=== PATIENT | male | born 1955 | race African-American/Black ===

== ENCOUNTER 2016-10-23 21:05 | Inpatient (IN) | payer MEDICARE, MEDICAID ==
[~2016-10-23] VITALS: Ht 172.7 cm; Wt 65.3 kg
[~2016-10-23 21:05] MED LIST: AMLODIPINE BESY10 MG ORAL; CLOPIDOGREL75 MG ORAL; DOCUSATE SODIU100 MG ORAL; HUMALOG100 UNIT/4 SUBQ; IPRATROPIU0.2 MG/1 M HHN; METFORMIN HCL500 M1 ORAL; MILK OF MA400 MG/51 ORAL; MULTIVITAMINS1 EA13 ORAL; NORCO 5-325 TA1 EAC1 ORAL; PROTONIX40 MG ORAL; SIMVASTATIN10 MG ORAL; TYLENOL325 MG ORAL
[2016-10-23 21:38] LABS: MEAN CORPUSCULAR HEMOGLOBIN 25.9 PG (27.0-31.0); MEAN CORPUSCULAR HGB CONC 31.2 G/DL (32.0-36.0); MEAN CORPUSCULAR VOLUME 83 FL (80-99); PLATELET COUNT 339 K/UL (150-450); RED CELL DISTRIBUTION WIDTH 15.2 % (11.6-14.8)
[2016-10-23 21:47] LABS: INR 1.1 (0.9-1.1); PROTHROMBIN TIME 11.1 SEC (9.30-11.50)
[2016-10-23 21:57] LABS: ALANINE AMINOTRANSFERASE 104 U/L (3-41); ALBUMIN/GLOBULIN RATIO 0.8 (1.0-2.7); ANION GAP 25 (5-15); ASPARTATE AMINO TRANSFERASE 165 U/L (5-40); CALCIUM 9.6 mg/dL (8.6-10.2); CARBON DIOXIDE 24 mEQ/L (20-30); CHLORIDE 91 mEQ/L (98-107); GLOMERULAR FILTRATION RATE > 60 mL/min (>60); HEMOLYSIS 0; POTASSIUM 3.6 mEQ/L (3.4-4.9); SODIUM 140 mEQ/L (135-145); TOTAL PROTEIN 7.3 g/dL (6.6-8.7)
[2016-10-23 21:58] LABS: TROPONIN I < 0.30 ng/mL (<=0.30)
[2016-10-23 22:07] LABS: WHITE BLOOD COUNT 29.1 K/UL (4.8-10.8)
[2016-10-23 22:08] LABS: CKMB < 1.5 ng/mL (< 6.7)
[2016-10-23 22:13] LABS: APPEARANCE,URINE CLOUDY; KETONES,URINE NEGATIVE (NEGATIVE); LEUKOCYTE ESTERASE ,URINE 3+ (NEGATIVE); NITRITE,URINE NEGATIVE (NEGATIVE); PH,URINE 8 (4.5-8.0); PROTEIN,URINE 3+ (NEGATIVE); UROBILINOGEN,URINE NORMAL MG/DL (0.0-1.0)
[2016-10-23 22:29] LABS: RBC,URINE TNTC /HPF (0 - 0); WBC,URINE TNTC /HPF (0 - 0)
[2016-10-23 22:30] LABS: BACTERIA,URINE MANY /HPF
[2016-10-23] MEDS ORDERED: Piperacillin/Tazobactam 4.5 GM in NS 110 ML IVPB ONE (22:30)
[2016-10-23] MEDS ORDERED: Zosyn 4.5gm inj ONE (22:36)
[2016-10-23 22:38] LABS: REFLEX LACTIC ACID YES OR NO YES
[2016-10-23 22:45] LABS: BAND NEUTROPHILS % (MANUAL) 5 % (0-8); BASOPHILS % (MANUAL) 0 % (0-2); EOSINOPHILS % (MANUAL) 2 % (0-3); LYMPHOCYTES % (MANUAL) 10 % (20-45); NEUTROPHILS % (MANUAL) 82 % (45-75); PLATELET ESTIMATE ADEQUATE; TOTAL CELLS COUNTED 100
[2016-10-23 22:46] LABS: ANISOCYTOSIS 2+; POLYCHROMASIA 1+
[2016-10-23 22:47] LABS: PLATELET MORPHOLOGY NORMAL
[2016-10-23 23:15] VITALS: BP 136/69
[2016-10-24 00:10] VITALS: BP 146/77
--- NOTE | 2016-10-24 00:51 | Emergency Room Report ---
History of Present Illness General Chief Complaint: Altered Level of Consciousness Source: Medical Record, EMS Present Illness HPI This is a 61-year-old [place] male with chronic medical problem. He has a history of chronic respiratory failure and has a tracheostomy and feeding tube. He presents with chief complaint of vomiting shortness of breath. History is limited because of his condition. There is no noted fever or chills. Nursing staff was able to suction food product from his throat. Afterward he felt better. Allergies: Coded Allergies: No Known Allergies (Unverified , 02/06/16) Patient History Past Medical History: see triage record, old chart reviewed Past Surgical History: other Pertinent Family History: none Social History: Denies: smoking Immunizations: other Reviewed Nursing Documentation: PMH: Agreed, PSxH: Agreed Nursing Documentation-PMH Past Medical History: No History, Except For Hx Hypertension: Yes Hx COPD: Yes Hx Diabetes: Yes Hx Gastrointestinal Problems: Yes - non alcoholic steatohepatitis,enlarged prostate Hx Neurological Problems: Yes Hx Cerebrovascular Accident: Yes Review of Systems Eye: Denies: blurred vision, eye pain ENT: Denies: ear pain, nose congestion, throat swelling Respiratory: Reports: shortness of breath, Denies: cough Cardiovascular: Denies: chest pain, palpitations Gastrointestinal: Reports: nausea, vomiting, Denies: abdominal pain, diarrhea Musculoskeletal: Denies: back pain, joint pain Skin: Denies: rash Neurological: Denies: headache, numbness Endocrine: Denies: increased thirst, increased urine Hematologic/Lymphatic: Denies: easy bruising All Other Systems: negative except mentioned in HPI Physical Exam Vital Signs Date Time Temp Pulse Resp B/P Pulse Ox O2 Delivery O2 Flow Rate FiO2 10/23/16 20:59 130 45 122/80 100 Ambu-Bag 10/23/16 23:15 98.1 8.0 vitals with tachycardia Sp02 EP Interpretation: reviewed, normal General Appearance: alert, mild distress, Chronically Ill Head: normocephalic, atraumatic Eyes: bilateral eye EOMI, bilateral eye PERRL ENT: hearing grossly normal, normal pharynx Neck: full range of motion, supple, no meningismus Respiratory: chest non-tender, lungs clear, normal breath sounds Cardiovascular #1: regular rate, rhythm, no murmur Gastrointestinal: normal bowel sounds, non tender, no mass, no organomegaly, no bruit, non-distended Genitourinary: other - Blake with cloudy urine Musculoskeletal: back normal, other - Contracted Neurologic: alert Psychiatric: mood/affect normal Skin: warm/dry Procedures Critical Care Time Critical Care Time Critical care is mandated in this patient who presented with severe sepsis from UTI. Patient require my urgent intervention to attenuate the risks of metabolic collapse which may lead to cardiovascular collapse and . Critical care time is 35 minutes excluding any reportable procedure. Critical care time included evaluation, multiple reevaluation, looking at old charts, interpreting laboratory and diagnostic data, discussing case with patient and family and consultants, and charting. Medical Decision Making Diagnostic Impression: Primary Impression: Severe sepsis Additional Impressions: UTI (urinary tract infection) Qualified Codes: N30.00 - Acute cystitis without hematuria Anemia, chronic disease Proteinuria Chronic respiratory failure Qualified Codes: J96.10 - Chronic respiratory failure, unspecified whether with hypoxia or hypercapnia ER Course Patient presents with severe sepsis secondary to UTI. Lactic acid was high and came down with IV fluid. Blood pressures been stable. White spectrum antibiotics given. Patient will be admitted. Lab Results Impression labs with leukocytosis EKG Diagnostic Results Rate: normal Rhythm: NSR ST Segments: no acute changes Rhythm Strip Diag. Results EP Interpretation: yes Rate: 105 Rhythm: NSR, no PVC's, no ectopy Chest X-Ray Diagnostic Results EP Interpretation: Yes Findings: no consolidation, no effusion, no pneumothorax, no acute cardiopulmonary disease Number of Views: 1 Last Vital Signs Date Time Temp Pulse Resp B/P Pulse Ox O2 Delivery O2 Flow Rate FiO2 10/24/16 00:10 98.1 109 26 146/77 100 Trach Collar 8.0 Status: improved Disposition: ADMITTED INPATIENT Condition: Serious Referrals: CHALO PERRY (PCP) TO CASTELLANOS M.D. Oct 24, 2016 00:51
[2016-10-24 01:12] VITALS: BP 158/81
[2016-10-24 04:00] VITALS: BP 156/100
[2016-10-24] MEDS ORDERED: Zosyn 3.375gm inj ONE (06:04)
[2016-10-24] MEDS: Heparin 5000 units/ml inj SUBQ SCH ×3 (06:23→21:38)
[2016-10-24] MEDS: NovoLOG Insulin Flexpen SUBQ SCH ×4 (06:25→21:16)
[2016-10-24] MEDS: Piperacillin/Tazobactam 3.375 GM in D5W 110 ML IVPB SCH ×3 (06:26→21:38)
[2016-10-24] MEDS ORDERED: Insulin NPH SUBQ SCH (06:30)
[2016-10-24] MEDS ORDERED: Albuterol ud Inhalation HHN SCH (07:00)
[2016-10-24] MEDS ORDERED: LIPITOR40 MG ORAL (07:08)
[2016-10-24] MEDS ORDERED: ASPIR 8181 MG ORAL (07:08)
[2016-10-24] MEDS ORDERED: VITAMIN C500 M1 ORAL (07:08)
[2016-10-24] MEDS ORDERED: LACTULOSE20 GM/301 ORAL (07:08)
[2016-10-24] MEDS ORDERED: CRANBERRY500 M4 PO (07:08)
[2016-10-24] MEDS ORDERED: MULTIVITAMINS1 EAC8 ORAL (07:08)
[2016-10-24] MEDS ORDERED: OMEPRAZOLE20 M3 ORAL (07:08)
[2016-10-24] MEDS ORDERED: METFORMIN HCL500 M1 ORAL (07:08)
[2016-10-24] MEDS ORDERED: COZAAR50 MG ORAL (07:08)
[2016-10-24] MEDS ORDERED: MIRTAZAPINE7.5 MG ORAL (07:08)
[2016-10-24] MEDS ORDERED: ENEMA133 M1 RC (07:08)
[2016-10-24] MEDS ORDERED: Lactulose 20gm/30ml UDC ORAL SCH (07:15)
[2016-10-24] MEDS ORDERED: Fleet's Enema 133ml RECTAL SCH (07:15)
[2016-10-24] MEDS ORDERED: Fleet's Enema 133ml RECTAL PRN ×2 (07:30→09:00)
[2016-10-24] MEDS ORDERED: Lactulose 20gm/30ml UDC ORAL PRN ×2 (07:30→09:00)
--- NOTE | 2016-10-24 08:58 | Consultation ---
History of Present Illness General Date patient seen: Oct 24, 2016 Time patient seen: 08:30 Chief Complaint: Altered Level of Consciousness Referring physician: dr Wallace Reason for Consultation: chronic respiratory failure, trach status. sepsis Present Illness HPI 61-year-old Citizen Of [place] male with chronic respiratory failure, tracheostomy status 7-8- months ago due to failure to wean, DM. HTN, hx of CVA with [employer] Presents with chief complaint of vomiting, shortness of breath.. No reported fever or chills. Nursing staff was able to suction food product from his throat. Afterward he felt better. Workup in ED revealed leukocytosis, elevated lactic acid, elevated LFT UA + UTI CXR no evidence of PNA patient started on fluid resuscitation septic workup initiated started on empiric antibiotic and transfer to [facility] for further management Allergies: Coded Allergies: No Known Allergies (Unverified , 02/06/16) Medication History Scheduled Amlodipine Besylate* (Amlodipine Besylate*), 10 MG ORAL DAILY, (Reported) Ascorbic Acid* (Vitamin C*), 500 MG ORAL DAILY, (Reported) Aspirin* (Aspir 81*), 81 MG ORAL DAILY, (Reported) Atorvastatin Calcium* (Lipitor*), 40 MG ORAL BEDTIME, (Reported) Clopidogrel* (Clopidogrel*), 75 MG ORAL DAILY, (Reported) Docusate Sodium* (Docusate Sodium*), 100 MG ORAL TWICE A DAY, (Reported) Losartan Potassium* (Cozaar*), 50 MG ORAL TWICE A DAY, (Reported) Metformin Hcl* (Metformin Hcl*), 500 MG ORAL THREE TIMES A DAY, (Reported) Metformin Hcl* (Metformin Hcl*), 500 MG ORAL TWICE A DAY, (Reported) Mirtazapine* (Mirtazapine*), 7.5 MG ORAL BEDTIME, (Reported) Multivitamin With Minerals (Multivitamins With Minerals*), 1 TAB ORAL DAILY, ( Reported) Multivitamin with Minerals (Multivitamins with Minerals), 1 TAB ORAL DAILY, ( Reported) Omeprazole (Omeprazole), 20 MG ORAL DAILY, (Reported) Pantoprazole* (Protonix*), 40 MG ORAL ACBREAKFAST, (Reported) Simvastatin (Zocor), 10 MG ORAL BEDTIME, (Reported) Scheduled PRN Acetaminophen (Tylenol), 650 MG ORAL Q6H PRN for Mild Pain/Temp > 100.5, ( Reported) Hydrocodone Bit/Acetaminophen 5-325* (Damar 5-325 Tablet*), 1 TAB ORAL Q4H PRN for For Pain, (Reported) Ipratropium Alloway 0.5MG/2.5ML (Ipratropium Alloway 0.5MG/2.5ML), 0.5 MG HHN EVERY 3 HOURS PRN for Shortness of Breath, (Reported) Magnesium Hydroxide* (Milk Of Magnesia*), 30 ML ORAL EVERY 6 HOURS PRN for Constipation, (Reported) Miscellaneous Medications Cranberry Extract (Cranberry), 500 MG PO, (Reported) Insulin Lispro (Humalog), 0 SUBQ, (Reported) Lactulose (Lactulose*), 30 ML ORAL, (Reported) Na Phos,M-B/Na Phos,Di-Ba (Enema), 133 ML RC, (Reported) Patient History History Provided By: Patient, Family Member Healthcare decision maker Self Resuscitation status Full Code Advanced Directive on File Yes Past Medical/Surgical History Past Medical/Surgical History: (1) CVA, old, hemiparesis (2) Diabetes mellitus (3) Acute respiratory failure (4) Anemia (5) Chronic respiratory failure Review of Systems Constitutional: Reports: weakness Eye: Reports: no symptoms ENT: Reports: no symptoms Respiratory: Reports: see HPI Cardiovascular: Reports: no symptoms Gastrointestinal: Reports: no symptoms Genitourinary: Reports: see HPI Musculoskeletal: Reports: muscle pain, muscle stiffness Psychiatric: Reports: no symptoms Neurological: Reports: other - hx of CVA with [employer] Endocrine: Reports: other - DM Hematologic/Lymphatic: Reports: anemia Physical Exam General Appearance: no apparent distress, alert - responsive Lines, tubes and drains: peripheral, trach - Portex #6, secretions moderate, thick, yellow HEENT: normocephalic, atraumatic, anicteric Neck: normal inspection Respiratory/Chest: chest wall non-tender, no accessory muscle use, rhonchi - bilaterally - scattered Cardiovascular/Chest: normal peripheral pulses, normal rate, regular rhythm Abdomen: normal bowel sounds, non tender, soft Genitourinary/Rectal: other - Blake with cloudy urine Extremities: non-tender, normal capillary refill, no edema, other - spastic LE extremitties, [employer] Skin Exam: warm/dry Neurologic: abnormal gait, alert, responsive - with head nodding or shaking , other - Left side weakness Musculoskeletal: atrophy - BLE Last 24 Hour Vital Signs Date Time Temp Pulse Resp B/P Pulse Ox O2 Delivery O2 Flow Rate FiO2 10/24/16 08:23 T-piece 6.0 28 10/24/16 08:23 79 18 98 T-piece 28 10/24/16 08:23 98 T-piece 6.0 28 10/24/16 08:23 28 10/24/16 08:23 81 18 98 T-piece 28 10/24/16 04:00 96.1 102 18 156/100 98 T-piece 6.0 28 10/24/16 04:00 94 10/24/16 04:00 6.0 28 10/24/16 01:29 98 T-piece 6.0 10/24/16 01:29 T-piece 6.0 28 10/24/16 01:14 98.1 105 26 158/81 100 Trach Collar 8.0 10/24/16 01:12 98.1 105 26 158/81 100 Trach Collar 8.0 10/24/16 00:10 98.1 109 26 146/77 100 Trach Collar 8.0 10/23/16 23:15 98.1 114 18 136/69 100 Trach Collar 8.0 10/23/16 20:59 130 45 122/80 100 Ambu-Bag Intake and Output 10/23/16 10/24/16 19:00 07:00 Intake Total 760 ml Output Total 2600 ml Balance -1840 ml Intake Oral 0 ml IV Total 760 ml Output Urine Total 2600 ml # Bowel Movements 2 Laboratory Tests Test 10/23/16 21:10 10/23/16 21:30 10/23/16 23:01 White Blood Count 29.1 K/UL (4.8-10.8) *H Red Blood Count 3.60 M/UL (4.70-6.10) L Hemoglobin 9.3 G/DL (14.2-18.0) L Hematocrit 29.9 % (42.0-52.0) L Mean Corpuscular Volume 83 FL (80-99) Mean Corpuscular Hemoglobin 25.9 PG (27.0-31.0) L Mean Corpuscular Hemoglobin Concent 31.2 G/DL (32.0-36.0) L Red Cell Distribution Width 15.2 % (11.6-14.8) H Platelet Count 339 K/UL (150-450) Mean Platelet Volume 7.0 FL (6.5-10.1) Neutrophils (%) (Auto) % (45.0-75.0) Lymphocytes (%) (Auto) % (20.0-45.0) Monocytes (%) (Auto) % (1.0-10.0) Eosinophils (%) (Auto) % (0.0-3.0) Basophils (%) (Auto) % (0.0-2.0) Differential Total Cells Counted 100 Neutrophils % (Manual) 82 % (45-75) H Lymphocytes % (Manual) 10 % (20-45) L Monocytes % (Manual) 1 % (1-10) Eosinophils % (Manual) 2 % (0-3) Basophils % (Manual) 0 % (0-2) Band Neutrophils 5 % (0-8) Platelet Estimate Adequate Platelet Morphology Normal Polychromasia 1+ Anisocytosis 2+ Prothrombin Time 11.1 SEC (9.30-11.50) Prothromb Time International Ratio 1.1 (0.9-1.1) Activated Partial Thromboplast Time 26 SEC (23-33) Sodium Level 140 mEQ/L (135-145) Potassium Level 3.6 mEQ/L (3.4-4.9) Chloride Level 91 mEQ/L (98-107) L Carbon Dioxide Level 24 mEQ/L (20-30) Anion Gap 25 (5-15) H Blood Urea Nitrogen 23 mg/dL (7-23) Creatinine 1.0 mg/dL (0.7-1.2) Estimat Glomerular Filtration Rate > 60 mL/min (>60) Glucose Level 244 mg/dL (74-106) H Lactic Acid Level 7.30 mmol/L (0.66-2.22) H 2.50 mmol/L (0.66-2.22) H Calcium Level 9.6 mg/dL (8.6-10.2) Total Bilirubin 0.3 mg/dL (0.0-1.2) Aspartate Amino Transf (AST/SGOT) 165 U/L (5-40) H Alanine Aminotransferase (ALT/SGPT) 104 U/L (3-41) H Alkaline Phosphatase 117 U/L (40-129) Total Creatine Kinase 24 U/L (38-174) L Creatine Kinase MB < 1.5 ng/mL (< 6.7) Creatine Kinase MB Relative Index Troponin I < 0.30 ng/mL (<=0.30) Pro-B-Type Natriuretic Peptide 108 pg/mL (0-125) Total Protein 7.3 g/dL (6.6-8.7) Albumin 3.4 g/dL (3.5-5.2) L Globulin 3.9 g/dL Albumin/Globulin Ratio 0.8 (1.0-2.7) L Urine Color Yellow Urine Appearance Cloudy Urine pH 8 (4.5-8.0) Urine Specific [place] 1.010 (1.005-1.035) Urine Protein 3+ (NEGATIVE) H Urine Glucose (UA) Negative (NEGATIVE) Urine Ketones Negative (NEGATIVE) Urine Occult Blood 4+ (NEGATIVE) H Urine Nitrite Negative (NEGATIVE) Urine Bilirubin Negative (NEGATIVE) Urine Urobilinogen Normal MG/DL (0.0-1.0) Urine Leukocyte Esterase 3+ (NEGATIVE) H Urine RBC Tntc /HPF (0 - 0) H Urine WBC Tntc /HPF (0 - 0) H Urine Squamous Epithelial Cells None /LPF (NONE/OCC) Urine Bacteria Many /HPF (NONE) H Height (Feet): 5 Height (Inches): 8.00 Weight (Pounds): 144 Medications Current Medications Medications (Trade) Dose Ordered Sig/[place]usha Route PRN Reason Start Time Stop Time Status Last Admin Dose Admin Acetaminophen (Tylenol) 650 mg Q6H PRN ORAL Mild Pain/Temp > 100.5 10/24/16 05:00 11/23/16 04:59 Albuterol Sulfate (Proventil) 2.5 mg Q4HRT HHN 10/24/16 07:00 10/29/16 06:59 10/24/16 08:22 Amlodipine Besylate (Norvasc) 10 mg DAILY ORAL 10/24/16 09:00 11/23/16 08:59 Ascorbic Acid (Vitamin C) 500 mg DAILY ORAL 10/24/16 09:00 11/23/16 08:59 Aspirin (Ecotrin) 81 mg DAILY ORAL 10/24/16 09:00 11/23/16 08:59 Atorvastatin Calcium (Lipitor) 40 mg BEDTIME ORAL 10/24/16 21:00 11/23/16 20:59 Dextrose STAT PRN IV Hypoglycemia 10/24/16 04:45 11/23/16 04:44 Heparin Sodium (Porcine) (Heparin 5000 units/ml) 5,000 units EVERY 8 HOURS SUBQ 10/24/16 06:00 11/23/16 05:59 10/24/16 06:23 Insulin Aspart (NovoLOG) BEFORE MEALS AND HS SUBQ 10/24/16 06:30 11/23/16 06:29 10/24/16 06:25 Insulin Detemir (Levemir) 26 units BEDTIME SUBQ 10/24/16 21:00 11/23/16 20:59 Lactulose (Cephulac) 20 gm DAILYPRN PRN ORAL Constipation 10/24/16 09:00 11/23/16 08:59 Losartan Potassium (Cozaar) 50 mg TWICE A DAY ORAL 10/24/16 09:00 11/23/16 08:59 Metformin HCl (Glucophage) 500 mg TWICE A DAY ORAL 10/24/16 09:00 11/23/16 08:59 Mirtazapine (Remeron) 7.5 mg BEDTIME ORAL 10/24/16 21:00 11/23/16 20:59 Multivitamins Therapeutic (Therapeutic Multivitamin) 1 ea DAILY ORAL 10/24/16 09:00 11/23/16 08:59 Pantoprazole (Protonix) 40 mg DAILY IVP 10/24/16 09:00 11/23/16 08:59 Piperacillin Sod/ Tazobactam Sod/ Dextrose (Zosyn/D5W) 110 ml @ 27.5 mls/hr Q8HR IVPB 10/24/16 06:00 10/31/16 05:59 10/24/16 06:26 Sodium Chloride (Sodium Chloride 1000ml bag) 1,000 ml @ 75 mls/hr [id number] IVLG 10/24/16 05:43 11/23/16 05:42 10/24/16 06:22 Sodium Phosphate (Fleet's Sodium Phosl Enema) 133 ml DAILYPRN PRN RECTAL Constipation 10/24/16 09:00 11/23/16 08:59 Assessment/Plan Assessment/Plan ASSESSMENT sepsis UTI chronic respiratory failure, tracheostomy status acute on chronic respiratory failure aspiration/likely aspiration PNA elevated LFT HTN DM Hx of CVA with left side weakness functional quadriplegia anemia PLAN OF CARE [facility] status IVF keep NPO for now, likely aspirated empiric abx ID consult per PMD ABG trach care pulmonary toilet ATC and prn sputum cx fup with CXR in am swallow eval BP management with CCB and optimize further as needed continue ASA stop statin and trend LFT abdominal US hepatitis panel venous Duplex BS management with Levemir and SS of insulin , check HgA1c and TSH monitor HH, anemia workup if trending down ( hx of chronic anemia) Bowel regimen DVT. GI prophylaxis case discussed and evaluated by supervising physician Mauricio ([facility]),Savanah ROBLEDO Oct 24, 2016 08:58
[2016-10-24] MEDS ORDERED: DuoNeb 0.5-3(2.5)mg/3ml neb HHN PRN (09:00)
[2016-10-24] MEDS: Ascorbic Acid 500mg tab ORAL SCH (09:04)
[2016-10-24] MEDS: Multivitamin w/Minerals tab ORAL SCH (09:04)
[2016-10-24] MEDS: Pantoprazole Inj IVP SCH (09:04)
[2016-10-24] MEDS: Aspirin EC 81mg tab ORAL SCH (09:04)
[2016-10-24] MEDS: Losartan 50mg tab ORAL SCH ×2 (09:05→18:00)
[2016-10-24] MEDS: metFORMIN 500mg tab ORAL SCH ×2 (09:05→18:23)
[2016-10-24 09:35] LABS: BASOPHILS % (AUTO) 0.5 % (0.0-2.0); LYMPHOCYTES % (AUTO) 14.3 % (20.0-45.0); MEAN CORPUSCULAR HEMOGLOBIN 24.7 PG (27.0-31.0); MEAN CORPUSCULAR HGB CONC 30.3 G/DL (32.0-36.0); MEAN CORPUSCULAR VOLUME 81 FL (80-99); MEAN PLATELET VOLUME 6.6 FL (6.5-10.1); MONOCYTES % (AUTO) 3.1 % (1.0-10.0); PLATELET COUNT 327 K/UL (150-450); RED BLOOD COUNT 4.21 M/UL (4.70-6.10); RED CELL DISTRIBUTION WIDTH 15.7 % (11.6-14.8); WHITE BLOOD COUNT 17.3 K/UL (4.8-10.8)
[2016-10-24 09:52] LABS: ANION GAP 19 (5-15); CARBON DIOXIDE 29 mEQ/L (20-30); CHLORIDE 95 mEQ/L (98-107); CREATININE 0.6 mg/dL (0.7-1.2); GLOMERULAR FILTRATION RATE > 60 mL/min (>60); HEMOLYSIS 15; MAGNESIUM 1.7 mg/dL (1.7-2.5); POTASSIUM 3.9 mEQ/L (3.4-4.9); SODIUM 143 mEQ/L (135-145)
[2016-10-24 09:53] LABS: REFLEX LACTIC ACID YES OR NO YES; TROPONIN I < 0.30 ng/mL (<=0.30)
--- NOTE | 2016-10-24 14:30 | History & Physical ---
History and Physical History & Physicial Dictated for Int Med-Dr Wallace no. [id number]. BRAYAN DOTY Oct 24, 2016 14:30
[2016-10-24] MEDS: DuoNeb 0.5-3(2.5)mg/3ml neb INH SCH (14:45)
[2016-10-24 15:43] VITALS: BP 120/64
[2016-10-24] MEDS ORDERED: NS 110ml ONE (17:36)
[2016-10-24] MEDS ORDERED: NS 275ml ONE (17:36)
[2016-10-24 19:42] VITALS: BP 98/52
[2016-10-24] MEDS: Levemir Flexpen SUBQ SCH (21:15)
--- NOTE | 2016-10-24 21:28 | History and Physical Report ---
DATE OF ADMISSION: 10/23/2016 CHIEF COMPLAINT: The patient is a 61-year-old male, who presents with chief complaint of shortness of breath. HISTORY OF PRESENT ILLNESS: The patient has a history of chronic respiratory failure. The patient is vent dependent and status post tracheostomy. The patient is a resident of [facility]. According to staff at [facility], the patient began to experience nausea and vomiting on 10/23/2016. The patient began to experience shortness of breath. EMS was called. The patient was transported to [facility] emergency room. Food was suctioned from the patient's tracheostomy site. The patient was admitted for shortness of breath to rule out pneumonia. REVIEW OF SYSTEMS: Constitutional: Unable to assess secondary to the patient's mental condition. PAST MEDICAL HISTORY: Significant for, 1. History of cerebrovascular accident. 2. Hypertension. 3. Chronic obstructive pulmonary disease. 4. Diabetes. 5. Hypercholesterolemia. PAST SURGICAL HISTORY: Significant for, 1. Tracheostomy placement. 2. PEG placement. CURRENT MEDICATIONS: From [place], 1. Aspirin 81 mg one tablet p.o. daily. 2. Albuterol nebulized q.4 h. p.r.n. 3. Cozaar 50 mg one tablet p.o. twice daily. 4. Cranberry capsule 1 tablet p.o. twice daily. 5. Humalog sliding scale. 6. Hydrochlorothiazide 12.5 mg one tablet p.o. daily. 7. Lactulose 30 mL p.o. twice daily. 8. Levemir 26 units subcutaneously twice daily. 9. Lipitor 40 mg one tablet p.o. daily. 10. Metformin 500 mg one tablet p.o. twice daily. 11. Multivitamin daily. 12. Norvasc 10 mg one tablet p.o. daily. 13. Prilosec 20 mg p.o. twice daily. 14. Remeron 7.5 mg p.o. at bedtime. 15. Tylenol 650 mg p.o. q.4 h. p.r.n. ALLERGIES: No known drug allergies. SOCIAL HISTORY: The patient is . The patient denies tobacco or alcohol use. PHYSICAL EXAMINATION: VITAL SIGNS: Temperature 96.1, respirations 18, pulse 102, blood pressure 156/100, and pulse oximetry 98% on 6 liters of oxygen. GENERAL: The patient is well developed, well nourished. male, who is intubated and sedated. HEENT: Eyes, pupils are equal and responsive to light and accommodation. Extraocular movements are intact. NECK: Supple without lymphadenopathy. CHEST: Coarse breath sounds bilaterally without wheezes or rales. CARDIOVASCULAR: Regular rhythm and rate. S1 and S2 are normal without murmurs, rubs, or gallops. ABDOMEN: Soft, nontender, and nondistended. Positive bowel sounds. No evidence of hepatosplenomegaly. Currently, no guarding or guarding. EXTREMITIES: Negative for clubbing, cyanosis, or edema. RECTAL/GENITALIA: Exam was not performed. NEUROLOGIC: Weak. Cranial nerves II through XII are grossly intact without focal deficits. LABORATORY STUDIES: WBC elevated at 29.1, hemoglobin 9.3, hematocrit 29.9, and platelets 339,000. Sodium 140, potassium 3.6, chloride 91, CO2 24, BUN 23, creatinine 1.0, and glucose elevated at 244. Lactic acid elevated at 7.3. Liver function tests elevated with an AST of 155 and ALT of 104. Troponin less than 0.3. Urinalysis showed 3+ protein, 4+ occult blood with 3+ leukocyte esterase and too numerous to count RBCs and too numerous to count WBCs. ASSESSMENT: This is a 61-year-old male. 1. Respiratory failure. 2. Urinary tract infection. 3. Probable sepsis. 4. Leukocytosis. 5. Nausea with vomiting. 6. Cerebrovascular disease. 7. Hypertension. 8. Chronic obstructive pulmonary disease. 9. Diabetes. 10. Hypercholesteremia. TREATMENT: 1. Urinary tract infection/sepsis. An Infectious Disease consultation will be obtained with Dr. Telles. The patient has been placed empirically on Zosyn. We will follow recommendation of Infectious Disease. Await urine culture results. 2. Leukocytosis secondary to sepsis and urinary tract infection as above. The patient has been started empirically on Zosyn. We will follow recommendation of Infectious Disease. 3. Respiratory failure. A Pulmonary consultation will be obtained with Dr. Lebron Kendall. The patient is trach dependent. We will follow recommendation of Pulmonary. 4. Cerebrovascular disease. 5. Hypertension. Continue Norvasc and losartan as above. 6. Chronic obstructive pulmonary disease as above. A Pulmonary consultation will be obtained with Dr. Lebron Kendall. We will follow recommendations of Pulmonary. 7. Diabetes. Continue Levemir and Humalog sliding scale as above. 8. Hypercholesterolemia. Continue Lipitor as above. Alex Dunbar M.D. DR: TRICIA JOB#: [id number] CC:
[2016-10-25] VITALS: BP_SYST 106; BP_SYST 89; BP_DIAS 54; BP_DIAS 55
[2016-10-25] MEDS: DuoNeb 0.5-3(2.5)mg/3ml neb INH SCH ×4 (00:08→22:38)
[2016-10-25 04:00] VITALS: BP 119/67
[2016-10-25 05:44] LABS: BASOPHILS % (AUTO) 0.5 % (0.0-2.0); EOSINOPHILS % (AUTO) 3.2 % (0.0-3.0); LYMPHOCYTES % (AUTO) 25.2 % (20.0-45.0); MEAN CORPUSCULAR HEMOGLOBIN 25.3 PG (27.0-31.0); MEAN CORPUSCULAR HGB CONC 31.1 G/DL (32.0-36.0); MEAN CORPUSCULAR VOLUME 81 FL (80-99); MEAN PLATELET VOLUME 7.5 FL (6.5-10.1); MONOCYTES % (AUTO) 5.3 % (1.0-10.0); NEUTROPHILS % (AUTO) 65.8 % (45.0-75.0); PLATELET COUNT 351 K/UL (150-450); RED BLOOD COUNT 3.54 M/UL (4.70-6.10); RED CELL DISTRIBUTION WIDTH 15.9 % (11.6-14.8); WHITE BLOOD COUNT 12.6 K/UL (4.8-10.8)
[2016-10-25 05:59] LABS: ALANINE AMINOTRANSFERASE 54 U/L (3-41); ALBUMIN/GLOBULIN RATIO 0.9 (1.0-2.7); ANION GAP 16 (5-15); ASPARTATE AMINO TRANSFERASE 22 U/L (5-40); CALCIUM 8.7 mg/dL (8.6-10.2); CARBON DIOXIDE 29 mEQ/L (20-30); CHLORIDE 98 mEQ/L (98-107); CREATININE 0.6 mg/dL (0.7-1.2); GLOMERULAR FILTRATION RATE > 60 mL/min (>60); HEMOLYSIS 0; POTASSIUM 3.5 mEQ/L (3.4-4.9); SODIUM 143 mEQ/L (135-145); TOTAL PROTEIN 6.4 g/dL (6.6-8.7)
[2016-10-25] MEDS: Piperacillin/Tazobactam 3.375 GM in D5W 110 ML IVPB SCH ×3 (06:08→21:32)
[2016-10-25] MEDS: Heparin 5000 units/ml inj SUBQ SCH ×3 (06:09→21:33)
[2016-10-25] MEDS: NovoLOG Insulin Flexpen SUBQ SCH ×4 (06:10→20:30)
[2016-10-25 07:04] LABS: HEMOGLOBIN A1C 6.4 % (< 6.0)
[2016-10-25 08:00] VITALS: BP 136/69
[2016-10-25] MEDS: Pantoprazole Inj IVP SCH (08:24)
[2016-10-25] MEDS: Multivitamin w/Minerals tab ORAL SCH (08:25)
[2016-10-25] MEDS: Losartan 50mg tab ORAL SCH ×2 (08:25→17:00)
[2016-10-25] MEDS: Ascorbic Acid 500mg tab ORAL SCH (08:25)
[2016-10-25] MEDS: metFORMIN 500mg tab ORAL SCH ×2 (08:25→17:00)
[2016-10-25] MEDS: Aspirin EC 81mg tab ORAL SCH (08:25)
--- NOTE | 2016-10-25 09:21 | Infectious Diseases Prog Note ---
Assessment/Plan Assessment/Plan ID consult dictated # [id number] Subjective Allergies: Coded Allergies: No Known Allergies (Unverified , 02/06/16) Objective Vital Signs Last 24 Hour Vital Signs Date Time Temp Pulse Resp B/P Pulse Ox O2 Delivery O2 Flow Rate FiO2 10/25/16 08:26 91 136/69 10/25/16 08:25 136/69 10/25/16 08:00 6.0 28 10/25/16 08:00 98.0 91 20 136/69 98 Trach Collar 6.0 28 10/25/16 07:09 92 18 98 Trach Collar 5.0 28 10/25/16 06:59 89 18 98 Trach Collar 5.0 28 10/25/16 06:59 28 10/25/16 06:59 Trach Collar 5.0 28 10/25/16 06:53 96 Trach Collar 5.0 28 10/25/16 04:00 6.0 28 10/25/16 04:00 97.3 85 20 119/67 98 Trach Collar 6.0 28 10/25/16 04:00 83 10/25/16 01:15 Trach Collar 28 10/25/16 01:15 98 Trach Collar 28 10/25/16 00:09 28 10/25/16 00:08 87 16 98 Trach Collar 28 10/25/16 00:00 83 10/25/16 00:00 98.2 88 18 89/54 99 T-piece 6.0 28 10/25/16 00:00 6.0 28 10/25/16 00:00 88 16 98 Trach Collar 28 10/24/16 20:00 79 10/24/16 20:00 6.0 28 10/24/16 19:42 97.7 79 20 98/52 98 10/24/16 19:36 Trach Collar 28 10/24/16 19:36 94 Trach Collar 28 10/24/16 18:00 100/51 10/24/16 16:00 6.0 28 10/24/16 16:00 89 10/24/16 15:43 98.1 92 19 120/64 92 Bi-pap 10/24/16 14:45 28 10/24/16 14:45 82 18 98 T-piece 28 10/24/16 14:45 82 18 98 T-piece 28 10/24/16 12:45 98 T-piece 6.0 28 10/24/16 12:45 T-piece 6.0 28 10/24/16 12:00 6.0 28 10/24/16 12:00 84 Height (Feet): 5 Height (Inches): 8.00 Weight (Pounds): 144 Microbiology Date/Time Source Procedure Growth Status 10/23/16 21:10 Blood Blood Culture - Preliminary NO GROWTH AFTER 24 HOURS Resulted 10/23/16 21:05 Blood Blood Culture - Preliminary NO GROWTH AFTER 24 HOURS Resulted 10/24/16 01:30 Sacral Swab Gram Stain Pending Resulted 10/24/16 01:30 Wound Culture - Preliminary Gram Negative Vinay Resulted Laboratory Tests Test 10/24/16 12:12 10/25/16 04:50 Lactic Acid Level 1.20 mmol/L (0.66-2.22) White Blood Count 12.6 K/UL (4.8-10.8) H Red Blood Count 3.54 M/UL (4.70-6.10) L Hemoglobin 8.9 G/DL (14.2-18.0) L Hematocrit 28.7 % (42.0-52.0) L Mean Corpuscular Volume 81 FL (80-99) Mean Corpuscular Hemoglobin 25.3 PG (27.0-31.0) L Mean Corpuscular Hemoglobin Concent 31.1 G/DL (32.0-36.0) L Red Cell Distribution Width 15.9 % (11.6-14.8) H Platelet Count 351 K/UL (150-450) Mean Platelet Volume 7.5 FL (6.5-10.1) Neutrophils (%) (Auto) 65.8 % (45.0-75.0) Lymphocytes (%) (Auto) 25.2 % (20.0-45.0) Monocytes (%) (Auto) 5.3 % (1.0-10.0) Eosinophils (%) (Auto) 3.2 % (0.0-3.0) H Basophils (%) (Auto) 0.5 % (0.0-2.0) Sodium Level 143 mEQ/L (135-145) Potassium Level 3.5 mEQ/L (3.4-4.9) Chloride Level 98 mEQ/L (98-107) Carbon Dioxide Level 29 mEQ/L (20-30) Anion Gap 16 (5-15) H Blood Urea Nitrogen 18 mg/dL (7-23) Creatinine 0.6 mg/dL (0.7-1.2) L Estimat Glomerular Filtration Rate > 60 mL/min (>60) Glucose Level 92 mg/dL (74-106) Hemoglobin A1c 6.4 % (< 6.0) H Calcium Level 8.7 mg/dL (8.6-10.2) Total Bilirubin 0.2 mg/dL (0.0-1.2) Aspartate Amino Transf (AST/SGOT) 22 U/L (5-40) Alanine Aminotransferase (ALT/SGPT) 54 U/L (3-41) H Alkaline Phosphatase 92 U/L (40-129) Total Protein 6.4 g/dL (6.6-8.7) L Albumin 3.1 g/dL (3.5-5.2) L Globulin 3.3 g/dL Albumin/Globulin Ratio 0.9 (1.0-2.7) L Hepatitis A IgM Antibody Pending Hepatitis B Surface Antigen Pending Hepatitis B Core IgM Antibody Pending Hepatitis C Antibody Pending Current Medications Medications (Trade) Dose Ordered Sig/Anusha Route PRN Reason Start Time Stop Time Status Last Admin Dose Admin Acetaminophen (Tylenol) 650 mg Q6H PRN ORAL Mild Pain/Temp > 100.5 10/24/16 05:00 11/23/16 04:59 10/25/16 06:07 Albuterol/ Ipratropium (DuoNeb 0.5-3(2.5)mg/3ml) 3 ml Q4H PRN HHN sob 10/24/16 09:00 10/29/16 08:59 Albuterol/ Ipratropium (DuoNeb 0.5-3(2.5)mg/3ml) 3 ml Q8HRT INH 10/24/16 15:00 10/29/16 14:59 10/25/16 06:59 Amlodipine Besylate (Norvasc) 10 mg DAILY ORAL 10/24/16 09:00 11/23/16 08:59 10/25/16 08:26 Ascorbic Acid (Vitamin C) 500 mg DAILY ORAL 10/24/16 09:00 11/23/16 08:59 10/25/16 08:25 Aspirin (Ecotrin) 81 mg DAILY ORAL 10/24/16 09:00 11/23/16 08:59 10/25/16 08:25 Dextrose STAT PRN IV Hypoglycemia 10/24/16 04:45 11/23/16 04:44 10/25/16 06:08 Heparin Sodium (Porcine) (Heparin 5000 units/ml) 5,000 units EVERY 8 HOURS SUBQ 10/24/16 06:00 11/23/16 05:59 10/25/16 06:09 Insulin Aspart (NovoLOG) BEFORE MEALS AND HS SUBQ 10/24/16 06:30 11/23/16 06:29 10/24/16 21:16 Insulin Detemir (Levemir) 26 units BEDTIME SUBQ 10/24/16 21:00 11/23/16 20:59 10/24/16 21:15 Lactulose (Cephulac) 20 gm DAILYPRN PRN ORAL Constipation 10/24/16 09:00 11/23/16 08:59 Losartan Potassium (Cozaar) 50 mg TWICE A DAY ORAL 10/24/16 09:00 11/23/16 08:59 10/25/16 08:25 Metformin HCl (Glucophage) 500 mg TWICE A DAY ORAL 10/24/16 09:00 11/23/16 08:59 10/25/16 08:25 Mirtazapine (Remeron) 7.5 mg BEDTIME ORAL 10/24/16 21:00 11/23/16 20:59 10/24/16 21:16 Multivitamins Therapeutic (Therapeutic Multivitamin) 1 ea DAILY ORAL 10/24/16 09:00 11/23/16 08:59 10/25/16 08:25 Pantoprazole (Protonix) 40 mg DAILY IVP 10/24/16 09:00 11/23/16 08:59 10/25/16 08:24 Piperacillin Sod/ Tazobactam Sod/ Dextrose (Zosyn/D5W) 110 ml @ 27.5 mls/hr Q8HR IVPB 10/24/16 06:00 10/31/16 05:59 10/25/16 06:08 Sodium Chloride (Sodium Chloride 1000ml bag) 1,000 ml @ 75 mls/hr [id number] IVLG 10/24/16 05:43 11/23/16 05:42 10/25/16 08:24 Sodium Phosphate (Fleet's Sodium Phosl Enema) 133 ml DAILYPRN PRN RECTAL Constipation 10/24/16 09:00 11/23/16 08:59 LUIS BENNETT Oct 25, 2016 09:21
[2016-10-25 10:09] LABS: ABG BASE EXCESS 3
--- NOTE | 2016-10-25 10:28 | Diagnostic Imaging Report ---
Clinical history: Shortness of breath Technique: Portable AP chest radiograph was obtained. Comparison: 10/24/16. Findings: There is no significant interval change in the interval, allowing for differences in technique and positioning. Impression: 1. Tracheostomy tube. Low lung volumes with probable basilar atelectasis. 2. Borderline cardiomegaly with suspected mild interstitial edema and trace left pleural effusion.
[2016-10-25 12:00] VITALS: BP 124/73
--- NOTE | 2016-10-25 14:10 | Internal Med Progress Note ---
Subjective Date of Service: Oct 25, 2016 Physician Name Brayan Doty Attending Physician Todd Wallace MD Current Medications Medications (Trade) Dose Ordered Sig/Anusha Route PRN Reason Start Time Stop Time Status Last Admin Dose Admin Acetaminophen (Tylenol) 650 mg Q6H PRN ORAL Mild Pain/Temp > 100.5 10/24/16 05:00 11/23/16 04:59 10/25/16 06:07 Albuterol/ Ipratropium (DuoNeb 0.5-3(2.5)mg/3ml) 3 ml Q4H PRN HHN sob 10/24/16 09:00 10/29/16 08:59 Albuterol/ Ipratropium (DuoNeb 0.5-3(2.5)mg/3ml) 3 ml Q8HRT INH 10/24/16 15:00 10/29/16 14:59 10/25/16 06:59 Amlodipine Besylate (Norvasc) 10 mg DAILY ORAL 10/24/16 09:00 11/23/16 08:59 10/25/16 08:26 Ascorbic Acid (Vitamin C) 500 mg DAILY ORAL 10/24/16 09:00 11/23/16 08:59 10/25/16 08:25 Aspirin (Ecotrin) 81 mg DAILY ORAL 10/24/16 09:00 11/23/16 08:59 10/25/16 08:25 Dextrose STAT PRN IV Hypoglycemia 10/24/16 04:45 11/23/16 04:44 10/25/16 06:08 Heparin Sodium (Porcine) (Heparin 5000 units/ml) 5,000 units EVERY 8 HOURS SUBQ 10/24/16 06:00 11/23/16 05:59 10/25/16 13:33 Insulin Aspart (NovoLOG) BEFORE MEALS AND HS SUBQ 10/24/16 06:30 11/23/16 06:29 10/25/16 11:43 Insulin Detemir (Levemir) 26 units BEDTIME SUBQ 10/24/16 21:00 11/23/16 20:59 10/24/16 21:15 Lactulose (Cephulac) 20 gm DAILYPRN PRN ORAL Constipation 10/24/16 09:00 11/23/16 08:59 Losartan Potassium (Cozaar) 50 mg TWICE A DAY ORAL 10/24/16 09:00 11/23/16 08:59 10/25/16 08:25 Metformin HCl (Glucophage) 500 mg TWICE A DAY ORAL 10/24/16 09:00 11/23/16 08:59 10/25/16 08:25 Mirtazapine (Remeron) 7.5 mg BEDTIME ORAL 10/24/16 21:00 11/23/16 20:59 10/24/16 21:16 Multivitamins Therapeutic (Therapeutic Multivitamin) 1 ea DAILY ORAL 10/24/16 09:00 11/23/16 08:59 10/25/16 08:25 Pantoprazole (Protonix) 40 mg DAILY IVP 10/24/16 09:00 11/23/16 08:59 10/25/16 08:24 Piperacillin Sod/ Tazobactam Sod/ Dextrose (Zosyn/D5W) 110 ml @ 27.5 mls/hr Q8HR IVPB 10/24/16 06:00 10/31/16 05:59 10/25/16 13:32 Sodium Chloride (Sodium Chloride 1000ml bag) 1,000 ml @ 75 mls/hr [id number] IVLG 10/24/16 05:43 11/23/16 05:42 10/25/16 08:24 Sodium Phosphate (Fleet's Sodium Phosl Enema) 133 ml DAILYPRN PRN RECTAL Constipation 10/24/16 09:00 11/23/16 08:59 Allergies: Coded Allergies: No Known Allergies (Unverified , 02/06/16) ROS Limited/Unobtainable: Yes Subjective 61 YO M admitted with respiratory failure and urinary tract infection. ROSE. Cover for Int Med - Dr Wallace. Objective Last Vital Signs Date Time Temp Pulse Resp B/P Pulse Ox O2 Delivery O2 Flow Rate FiO2 10/25/16 13:02 Trach Collar 5.0 28 10/25/16 13:02 96 10/25/16 12:00 97.7 83 20 124/73 General Appearance: lethargic, thin EENT: normal ENT inspection Neck: non-tender, normal alignment, supple, other - Trach collar Cardiovascular: normal peripheral pulses, normal rate, regular rhythm, no gallop/murmur, no JVD Respiratory/Chest: respiratory distress, crackles/rales, rhonchi - bilaterally , expiratory wheezing Abdomen: normal bowel sounds, non tender, soft, no organomegaly, no mass Skin: normal pigmentation, warm/dry Laboratory Tests Test 10/25/16 04:50 10/25/16 08:01 White Blood Count 12.6 K/UL (4.8-10.8) H Red Blood Count 3.54 M/UL (4.70-6.10) L Hemoglobin 8.9 G/DL (14.2-18.0) L Hematocrit 28.7 % (42.0-52.0) L Mean Corpuscular Volume 81 FL (80-99) Mean Corpuscular Hemoglobin 25.3 PG (27.0-31.0) L Mean Corpuscular Hemoglobin Concent 31.1 G/DL (32.0-36.0) L Red Cell Distribution Width 15.9 % (11.6-14.8) H Platelet Count 351 K/UL (150-450) Mean Platelet Volume 7.5 FL (6.5-10.1) Neutrophils (%) (Auto) 65.8 % (45.0-75.0) Lymphocytes (%) (Auto) 25.2 % (20.0-45.0) Monocytes (%) (Auto) 5.3 % (1.0-10.0) Eosinophils (%) (Auto) 3.2 % (0.0-3.0) H Basophils (%) (Auto) 0.5 % (0.0-2.0) Sodium Level 143 mEQ/L (135-145) Potassium Level 3.5 mEQ/L (3.4-4.9) Chloride Level 98 mEQ/L (98-107) Carbon Dioxide Level 29 mEQ/L (20-30) Anion Gap 16 (5-15) H Blood Urea Nitrogen 18 mg/dL (7-23) Creatinine 0.6 mg/dL (0.7-1.2) L Estimat Glomerular Filtration Rate > 60 mL/min (>60) Glucose Level 92 mg/dL (74-106) Hemoglobin A1c 6.4 % (< 6.0) H Calcium Level 8.7 mg/dL (8.6-10.2) Total Bilirubin 0.2 mg/dL (0.0-1.2) Aspartate Amino Transf (AST/SGOT) 22 U/L (5-40) Alanine Aminotransferase (ALT/SGPT) 54 U/L (3-41) H Alkaline Phosphatase 92 U/L (40-129) Total Protein 6.4 g/dL (6.6-8.7) L Albumin 3.1 g/dL (3.5-5.2) L Globulin 3.3 g/dL Albumin/Globulin Ratio 0.9 (1.0-2.7) L Hepatitis A IgM Antibody Pending Hepatitis B Surface Antigen Pending Hepatitis B Core IgM Antibody Pending Hepatitis C Antibody Pending Arterial Blood pH 7.440 (7.350-7.450) Arterial Blood Partial Pressure CO2 40.0 mmHg (35.0-45.0) Arterial Blood Partial Pressure O2 104.0 mmHg (75.0-100.0) H Arterial Blood HCO3 27.0 mmol/L (22.0-26.0) H Arterial Blood Oxygen Saturation 97.0 % (92.0-98.0) Arterial Blood Base Excess 3 Eric Test Microbiology Date/Time Source Procedure Growth Status 10/23/16 21:10 Blood Blood Culture - Preliminary NO GROWTH AFTER 24 HOURS Resulted 10/23/16 21:05 Blood Blood Culture - Preliminary NO GROWTH AFTER 24 HOURS Resulted 10/23/16 21:30 Urine,Clean Catch Urine Culture - Preliminary Gram Negative Bacillus 1 Resulted 10/24/16 01:30 Sacral Swab Gram Stain Pending Resulted 10/24/16 01:30 Wound Culture - Preliminary Gram Negative Vinay Resulted Intake and Output 10/24/16 10/25/16 19:00 07:00 Intake Total 1497.5 ml 1052.5 ml Output Total 800 ml 1000 ml Balance 697.5 ml 52.5 ml Intake Oral 480 ml 240 ml IV Total 1017.5 ml 812.5 ml Output Urine Total 800 ml 1000 ml Assessment/Plan Problem List: (1) Lactic acid acidosis (2) Leukocytosis (3) Nausea & vomiting (4) Respiratory failure (5) SOB (shortness of breath) (6) Cerebral vascular disease (7) HTN (hypertension) Assessment & Plan: Continue norvasc and cozar. (8) COPD (chronic obstructive pulmonary disease) Assessment & Plan: See pulmonary note. Cont duoneb. (9) Diabetes mellitus type II, uncontrolled Assessment & Plan: Cont levemir, novolog sliding scale and metformin. (10) Hypercholesteremia (11) Sepsis (12) UTI (urinary tract infection) Assessment & Plan: Gram neg rods; await ID and sensitivities. See ID note- Cont zosyn. Status: not improved BRAYAN DOTY Oct 25, 2016 14:10
--- NOTE | 2016-10-25 15:31 | Wound Care Consultation ---
Wound Assessment Wound Assessment : Wound Present on Admission: Yes New Wound: No Status Change of Wound: No Wound Location Body Site Modif: mid Wound Location Body Site: other - sacrococcygeal Wound Type: pressure ulcer Nila Test: Does not Nila Pressure Ulcer Stage: III - scattered Wound Thickness: Full Thickness Wound Length: 4.0 Wound Width: 4.5 Wound Depth: 0.3 Percent of Wound Rainelle/Red: 100 Wound Drainage Description: Serosanguineous Wound Drainage Amount: Scant Wound Drainage Odor: None/Absent Tissue Surrounding Wound: Macerated Wound General Appearance: Reddened Wound Comment #1 Sacrococcygeal scattered stage III pressure ulcers Recommendation -Sacrococcygeal scattered stage III pressure ulcers Cleanse with saline pat dry apply Triad cream cover with Biatain Silicone daily and PRN soiled/dislodged -Keep clean and dry -Turn and reposition -Offload both heels -Heel protector on both heels -Low air loss overlay mattress -Optimize nutrition -Assess and f/u accordingly for any changes JACKIE NORRIS RN Oct 25, 2016 15:31
--- NOTE | 2016-10-25 15:59 | Pulmonology Progress Note ---
Assessment/Plan Assessment/Plan ASSESSMENT sepsis UTI chronic respiratory failure, tracheostomy status acute on chronic respiratory failure aspiration/likely aspiration PNA elevated LFT HTN DM Hx of CVA with left side weakness functional quadriplegia anemia sacrococcyx st 3, POA PLAN OF CARE ROSE status IVF likely aspirated empiric abx ID follows urine cx + GNB, blood cx preliminary negative, sputum cx if able ABG stable on current FiO2 trach care pulmonary toilet ATC and prn 4/2 CXR with Low lung volumes with probable basilar atelectasis. Borderline cardiomegaly with suspected mild interstitial edema and trace left pleural effusion. swallow eval in am BP management with CCB and optimize further as needed continue ASA stopped statin due to elevated LFT , trend LFT abdominal US hepatitis panel venous Duplex BS management with Levemir and SS of insulin , check HgA1c and TSH monitor HH, anemia workup if trending down ( hx of chronic anemia) Bowel regimen DVT. GI prophylaxis case discussed and evaluated by supervising physician Subjective Allergies: Coded Allergies: No Known Allergies (Unverified , 02/06/16) Subjective leukocytosis trendgin down, afebrile no signs of respiratory distress ABG stable Objective Last 24 Hour Vital Signs Date Time Temp Pulse Resp B/P Pulse Ox O2 Delivery O2 Flow Rate FiO2 10/25/16 14:54 92 18 98 Trach Collar 5.0 28 10/25/16 14:44 89 18 98 Trach Collar 5.0 28 10/25/16 14:44 28 10/25/16 13:02 Trach Collar 5.0 28 10/25/16 13:02 96 Trach Collar 5.0 28 10/25/16 12:00 97.7 83 20 124/73 99 Trach Collar 6.0 28 10/25/16 12:00 85 10/25/16 12:00 6.0 28 10/25/16 08:26 91 136/69 10/25/16 08:25 136/69 10/25/16 08:00 6.0 28 10/25/16 08:00 98.0 91 20 136/69 98 Trach Collar 6.0 28 10/25/16 08:00 87 10/25/16 07:09 92 18 98 Trach Collar 5.0 28 10/25/16 06:59 89 18 98 Trach Collar 5.0 28 10/25/16 06:59 28 10/25/16 06:59 Trach Collar 5.0 28 10/25/16 06:53 96 Trach Collar 5.0 28 10/25/16 04:00 6.0 28 10/25/16 04:00 97.3 85 20 119/67 98 Trach Collar 6.0 28 10/25/16 04:00 83 10/25/16 01:15 Trach Collar 28 10/25/16 01:15 98 Trach Collar 28 10/25/16 00:09 28 10/25/16 00:08 87 16 98 Trach Collar 28 10/25/16 00:00 83 10/25/16 00:00 98.2 88 18 89/54 99 T-piece 6.0 28 10/25/16 00:00 6.0 28 10/25/16 00:00 88 16 98 Trach Collar 28 10/24/16 20:00 79 10/24/16 20:00 6.0 28 10/24/16 19:42 97.7 79 20 98/52 98 10/24/16 19:36 Trach Collar 28 10/24/16 19:36 94 Trach Collar 28 10/24/16 18:00 100/51 10/24/16 16:00 6.0 28 10/24/16 16:00 89 Intake and Output 10/24/16 10/25/16 19:00 07:00 Intake Total 1497.5 ml 1052.5 ml Output Total 800 ml 1000 ml Balance 697.5 ml 52.5 ml Intake Oral 480 ml 240 ml IV Total 1017.5 ml 812.5 ml Output Urine Total 800 ml 1000 ml Objective General Appearance: no apparent distress, alert - responsive Lines, tubes and drains: peripheral, trach - Portex #6, secretions moderate, thick, yellow HEENT: normocephalic, atraumatic, anicteric Neck: normal inspection Respiratory/Chest: chest wall non-tender, no accessory muscle use, few scattered rhonchi Cardiovascular/Chest: normal peripheral pulses, normal rate, regular rhythm Abdomen: normal bowel sounds, non tender, soft Genitourinary/Rectal: other - Blake with cloudy urine Extremities: non-tender, normal capillary refill, no edema, other - spastic LE extremities, [employer] HEAD Skin Exam: warm/dry Neurologic: abnormal gait, alert, responsive - with head nodding or shaking , Left side weakness Musculoskeletal: atrophy - BLE Microbiology Date/Time Source Procedure Growth Status 10/23/16 21:10 Blood Blood Culture - Preliminary NO GROWTH AFTER 24 HOURS Resulted 10/23/16 21:05 Blood Blood Culture - Preliminary NO GROWTH AFTER 24 HOURS Resulted 10/23/16 21:30 Urine,Clean Catch Urine Culture - Preliminary Gram Negative Bacillus 1 Resulted 10/24/16 01:30 Sacral Swab Gram Stain Pending Resulted 10/24/16 01:30 Wound Culture - Preliminary Gram Negative Vinay Resulted Laboratory Tests 10/25/16 04:50: White Blood Count 12.6H, Red Blood Count 3.54L, Hemoglobin 8.9L, Hematocrit 28.7L, Mean Corpuscular Volume 81, Mean Corpuscular Hemoglobin 25.3L, Mean Corpuscular Hemoglobin Concent 31.1L, Red Cell Distribution Width 15.9H, Platelet Count 351, Mean Platelet Volume 7.5, Neutrophils (%) (Auto) 65.8, Lymphocytes (%) (Auto) 25.2, Monocytes (%) (Auto) 5.3, Eosinophils (%) (Auto) 3.2H, Basophils (%) (Auto) 0.5, Sodium Level 143, Potassium Level 3.5, Chloride Level 98, Carbon Dioxide Level 29, Anion Gap 16H, Blood Urea Nitrogen 18, Creatinine 0.6L, Estimat Glomerular Filtration Rate > 60, Glucose Level 92, Hemoglobin A1c 6.4H, Calcium Level 8.7, Total Bilirubin 0.2, Aspartate Amino Transf (AST/SGOT) 22, Alanine Aminotransferase (ALT/SGPT) 54H, Alkaline Phosphatase 92, Total Protein 6.4L, Albumin 3.1L, Globulin 3.3, Albumin/ Globulin Ratio 0.9L, Hepatitis A IgM Antibody [Pending], Hepatitis B Surface Antigen [Pending], Hepatitis B Core IgM Antibody [Pending], Hepatitis C Antibody [Pending] 10/25/16 08:01: Arterial Blood pH 7.440, Arterial Blood Partial Pressure CO2 40.0, Arterial Blood Partial Pressure O2 104.0H, Arterial Blood HCO3 27.0H, Arterial Blood Oxygen Saturation 97.0, Arterial Blood Base Excess 3, Eric Test Current Medications Medications (Trade) Dose Ordered Sig/Anusha Route PRN Reason Start Time Stop Time Status Last Admin Dose Admin Acetaminophen (Tylenol) 650 mg Q6H PRN ORAL Mild Pain/Temp > 100.5 10/24/16 05:00 11/23/16 04:59 10/25/16 06:07 Albuterol/ Ipratropium (DuoNeb 0.5-3(2.5)mg/3ml) 3 ml Q4H PRN HHN sob 10/24/16 09:00 10/29/16 08:59 Albuterol/ Ipratropium (DuoNeb 0.5-3(2.5)mg/3ml) 3 ml Q8HRT INH 10/24/16 15:00 10/29/16 14:59 10/25/16 14:44 Amlodipine Besylate (Norvasc) 10 mg DAILY ORAL 10/24/16 09:00 11/23/16 08:59 10/25/16 08:26 Ascorbic Acid (Vitamin C) 500 mg DAILY ORAL 10/24/16 09:00 11/23/16 08:59 10/25/16 08:25 Aspirin (Ecotrin) 81 mg DAILY ORAL 10/24/16 09:00 11/23/16 08:59 10/25/16 08:25 Dextrose STAT PRN IV Hypoglycemia 10/24/16 04:45 11/23/16 04:44 10/25/16 06:08 Heparin Sodium (Porcine) (Heparin 5000 units/ml) 5,000 units EVERY 8 HOURS SUBQ 10/24/16 06:00 11/23/16 05:59 10/25/16 13:33 Insulin Aspart (NovoLOG) BEFORE MEALS AND HS SUBQ 10/24/16 06:30 11/23/16 06:29 10/25/16 11:43 Insulin Detemir (Levemir) 26 units BEDTIME SUBQ 10/24/16 21:00 11/23/16 20:59 10/24/16 21:15 Lactulose (Cephulac) 20 gm DAILYPRN PRN ORAL Constipation 10/24/16 09:00 11/23/16 08:59 Losartan Potassium (Cozaar) 50 mg TWICE A DAY ORAL 10/24/16 09:00 11/23/16 08:59 10/25/16 08:25 Metformin HCl (Glucophage) 500 mg TWICE A DAY ORAL 10/24/16 09:00 11/23/16 08:59 10/25/16 08:25 Mirtazapine (Remeron) 7.5 mg BEDTIME ORAL 10/24/16 21:00 11/23/16 20:59 10/24/16 21:16 Multivitamins Therapeutic (Therapeutic Multivitamin) 1 ea DAILY ORAL 10/24/16 09:00 11/23/16 08:59 10/25/16 08:25 Pantoprazole (Protonix) 40 mg DAILY IVP 10/24/16 09:00 11/23/16 08:59 10/25/16 08:24 Piperacillin Sod/ Tazobactam Sod/ Dextrose (Zosyn/D5W) 110 ml @ 27.5 mls/hr Q8HR IVPB 10/24/16 06:00 10/31/16 05:59 10/25/16 13:32 Sodium Chloride (Sodium Chloride 1000ml bag) 1,000 ml @ 75 mls/hr [id number] IVLG 10/24/16 05:43 11/23/16 05:42 10/25/16 08:24 Sodium Phosphate (Fleet's Sodium Phosl Enema) 133 ml DAILYPRN PRN RECTAL Constipation 10/24/16 09:00 11/23/16 08:59 Mauricio (Nonicelso)Savanah NP Oct 25, 2016 15:59
[2016-10-25 16:00] VITALS: BP 133/73
[2016-10-25 20:00] VITALS: BP 128/70
[2016-10-25] MEDS: Levemir Flexpen SUBQ SCH (20:30)
--- NOTE | 2016-10-25 21:29 | Consultation ---
DATE OF CONSULTATION: 10/25/2016 INFECTIOUS DISEASE CONSULTATION This consult is for coverage of Dr. Telles. PRIMARY ATTENDING PHYSICIAN: Todd Wallace M.D. REASON FOR CONSULT: Sepsis and UTI. HISTORY OF PRESENT ILLNESS: The patient is a 61-year-old -[place] man who is a correction resident admitted on 10/23/2016 because of altered mental status, also had respiratory distress, has leukocytosis, but had no fever. PAST MEDICAL HISTORY: Significant for COPD, diabetes mellitus, and fatty liver. The patient is status post tracheostomy, status post G-tube placement, had CVA, and left side hemiplegia. MEDICATIONS: Levemir insulin, Remeron, DuoNeb inhaler, amlodipine, vitamin C, metformin, multivitamin, lactulose, sodium phosphate, Zosyn, sodium chloride, and Tylenol. ALLERGIES: No known drug allergy. SOCIAL HISTORY: No history of alcohol or drug abuse or smoking. Originally from [facility]. REVIEW OF SYSTEMS: Limited, but at present perhaps this patient has no complaints. PHYSICAL EXAMINATION: VITAL SIGNS: Temperature 98 degrees, pulse 91, and blood pressure 136/69. GENERAL APPEARANCE: No acute distress. HEAD AND NECK: Eros conjunctivae. Status post tracheostomy. HEART: Regular. Normal rate. LUNGS: Clear. The patient is on T bar. ABDOMEN: Soft and nontender. EXTREMITIES: He has no edema. He had contraction in the left leg. NEUROLOGIC: Awake, alert, and responsive. LABORATORY DATA: WBC today is 12.6 coming down from 29.1 at the time of admission, hemoglobin 8.9, hematocrit 28.7, and platelets 251,000. Sodium 143, potassium 3.5, chloride 98, bicarbonate 29, BUN 18, and creatinine 0.6. UA showed WBCs wvo-ecngophq-fd-count, RBC tpr-osjcsjvy-sp-count, and leukocyte esterase 3+. Blood culture x2 so far are negative. IMPRESSION: Sepsis with respiratory distress and leukocytosis likely secondary to urinary tract infection. The patient also has chronic obstructive pulmonary disease, is status post tracheostomy, has history of diabetes mellitus and fatty liver, history of CVA. RECOMMENDATIONS: We will continue with Zosyn and follow up the urine culture. At the end of my exam, I thank Dr. Wallaec for involving me in the care of this patient. Talha Clay M.D. DR: PATY JOB#: [id number] CC: [id number]
[2016-10-26] VITALS: BP 112/58
[2016-10-26 04:00] VITALS: BP 120/58
[2016-10-26 05:26] LABS: BASOPHILS % (AUTO) 0.5 % (0.0-2.0); EOSINOPHILS % (AUTO) 4.7 % (0.0-3.0); LYMPHOCYTES % (AUTO) 30.5 % (20.0-45.0); MEAN CORPUSCULAR HEMOGLOBIN 25.4 PG (27.0-31.0); MEAN CORPUSCULAR HGB CONC 31.3 G/DL (32.0-36.0); MEAN CORPUSCULAR VOLUME 81 FL (80-99); MONOCYTES % (AUTO) 5.7 % (1.0-10.0); NEUTROPHILS % (AUTO) 58.4 % (45.0-75.0); PLATELET COUNT 333 K/UL (150-450); RED BLOOD COUNT 3.44 M/UL (4.70-6.10); RED CELL DISTRIBUTION WIDTH 15.8 % (11.6-14.8); WHITE BLOOD COUNT 9.5 K/UL (4.8-10.8)
[2016-10-26 05:47] LABS: ANION GAP 15 (5-15); CALCIUM 8.9 mg/dL (8.6-10.2); CARBON DIOXIDE 27 mEQ/L (20-30); CHLORIDE 102 mEQ/L (98-107); CREATININE 0.5 mg/dL (0.7-1.2); GLOMERULAR FILTRATION RATE > 60 mL/min (>60); HEMOLYSIS 19; POTASSIUM 3.7 mEQ/L (3.4-4.9); SODIUM 144 mEQ/L (135-145)
[2016-10-26] MEDS: Heparin 5000 units/ml inj SUBQ SCH ×3 (06:26→22:08)
[2016-10-26] MEDS: Piperacillin/Tazobactam 3.375 GM in D5W 110 ML IVPB SCH ×3 (06:27→21:38)
[2016-10-26] MEDS: NovoLOG Insulin Flexpen SUBQ SCH ×4 (06:27→21:38)
[2016-10-26] MEDS: DuoNeb 0.5-3(2.5)mg/3ml neb INH SCH ×3 (07:13→22:38)
[2016-10-26 08:00] VITALS: BP 137/82
--- NOTE | 2016-10-26 08:42 | Diagnostic Imaging Report ---
Indications: Shortness of breath Technique: Portable AP chest Findings: Comparison: 03/11/16 Lung inflation has decreased. Linear densities have increased in both lung bases. Superimposed patchy consolidative opacity is suggested in the left retrocardiac region. Left costophrenic angle now indistinct; right remain sharp. Cardiac silhouette partially obscured. Pulmonary vasculature within normal limits. Tracheostomy tube remains in place. IMPRESSION: Increase in pulmonary bibasal subsegmental atelectasis. Superimposed pneumonia in left lung base not excludable. Suggestion of development of small left pleural effusion
[2016-10-26] MEDS: Aspirin EC 81mg tab ORAL SCH (09:08)
[2016-10-26] MEDS: Pantoprazole Inj IVP SCH (09:08)
[2016-10-26] MEDS: Ascorbic Acid 500mg tab ORAL SCH (09:08)
[2016-10-26] MEDS: metFORMIN 500mg tab ORAL SCH ×2 (09:08→18:03)
[2016-10-26] MEDS: Multivitamin w/Minerals tab ORAL SCH (09:08)
[2016-10-26] MEDS: Losartan 50mg tab ORAL SCH ×2 (09:10→18:03)
--- NOTE | 2016-10-26 10:41 | Pulmonology Progress Note ---
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, 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, 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 Discussed with: nurses, consultants, window caser Subjective ROS Limited/Unobtainable: No Constitutional: Reports: no symptoms HEENT: Repors: no symptoms Allergies: Coded Allergies: No Known Allergies (Unverified , 02/06/16) Objective Last 24 Hour Vital Signs Date Time Temp Pulse Resp B/P Pulse Ox O2 Delivery O2 Flow Rate FiO2 10/26/16 09:10 137/82 10/26/16 09:09 85 137/82 10/26/16 08:00 97.7 85 18 137/82 99 Trach Collar 28 10/26/16 07:13 28 10/26/16 07:13 97 Trach Collar 5.0 28 10/26/16 07:13 87 18 98 Trach Collar 5.0 10/26/16 07:13 89 18 98 Trach Collar 5.0 10/26/16 07:13 Trach Collar 5.0 28 10/26/16 04:00 97.5 80 20 120/58 98 Trach Collar 6.0 10/26/16 04:00 83 10/26/16 04:00 6.0 28 10/26/16 01:11 96 Trach Collar 5.0 28 10/26/16 01:11 Trach Collar 5.0 28 10/26/16 00:00 97.2 76 20 112/58 98 Trach Collar 6.0 10/26/16 00:00 88 10/26/16 00:00 6.0 28 10/25/16 22:41 87 18 98 Trach Collar 5.0 28 10/25/16 22:38 85 18 98 Trach Collar 5.0 28 10/25/16 22:38 28 10/25/16 20:00 6.0 28 10/25/16 20:00 83 10/25/16 20:00 97.9 82 20 128/70 95 Mechanical Ventilator 10/25/16 19:07 97 Trach Collar 5.0 28 10/25/16 19:07 Trach Collar 5.0 28 10/25/16 17:23 97.7 10/25/16 17:00 133/73 10/25/16 16:00 6.0 28 10/25/16 16:00 85 10/25/16 16:00 98.1 86 20 133/73 98 Trach Collar 6.0 28 10/25/16 14:54 92 18 98 Trach Collar 5.0 28 10/25/16 14:44 89 18 98 Trach Collar 5.0 28 10/25/16 14:44 28 10/25/16 13:02 Trach Collar 5.0 28 10/25/16 13:02 96 Trach Collar 5.0 28 10/25/16 12:00 97.7 83 20 124/73 99 Trach Collar 6.0 28 10/25/16 12:00 85 10/25/16 12:00 6.0 28 Intake and Output 10/25/16 10/26/16 19:00 07:00 Intake Total 1550.0 ml 1255.0 ml Output Total 950 ml 1450 ml Balance 600.0 ml -195.0 ml Intake Oral 540 ml 360 ml IV Total 1010.0 ml 895.0 ml Output Urine Total 950 ml 1450 ml Objective Status: awake HEENT: atraumatic, normocephalic, trach in place Lungs: rhonchi Heart: HR/BP stable Abdomen: soft, non-tender Extremities: no C/C/E, edema Microbiology Date/Time Source Procedure Growth Status 10/23/16 21:10 Blood Blood Culture - Preliminary NO GROWTH AFTER 48 HOURS Resulted 10/23/16 21:05 Blood Blood Culture - Preliminary NO GROWTH AFTER 48 HOURS Resulted 10/25/16 06:50 Sputum Induced Gram Stain - Final Resulted 10/25/16 06:50 Sputum Induced Sputum Culture Pending Resulted 10/23/16 23:55 Nasal Nares MRSA Culture - Final Staphylococcus Aureus - Mrsa Complete 10/23/16 21:30 Urine,Clean Catch Urine Culture - Preliminary Proteus Mirabilis Mixed Gram Positive Organism Resulted 10/24/16 01:30 Sacral Swab Gram Stain Pending Resulted 10/24/16 01:30 Wound Culture - Preliminary Proteus Mirabilis Gram Negative Bacillus 2 Gram Negative Bacillus 3 Staphylococcus Aureus Strep Species, Gamma-Hemolytic Resulted Laboratory Tests 10/26/16 04:35: White Blood Count 9.5, Red Blood Count 3.44L, Hemoglobin 8.7L, Hematocrit 27.9L , Mean Corpuscular Volume 81, Mean Corpuscular Hemoglobin 25.4L, Mean Corpuscular Hemoglobin Concent 31.3L, Red Cell Distribution Width 15.8H, Platelet Count 333, Mean Platelet Volume 7.0, Neutrophils (%) (Auto) 58.4, Lymphocytes (%) (Auto) 30.5, Monocytes (%) (Auto) 5.7, Eosinophils (%) (Auto) 4.7H, Basophils (%) (Auto) 0.5, Sodium Level 144, Potassium Level 3.7, Chloride Level 102, Carbon Dioxide Level 27, Anion Gap 15, Blood Urea Nitrogen 10, Creatinine 0.5L, Estimat Glomerular Filtration Rate > 60, Glucose Level 107H, Calcium Level 8.9 Current Medications Medications (Trade) Dose Ordered Sig/Anusha Route PRN Reason Start Time Stop Time Status Last Admin Dose Admin Acetaminophen (Tylenol) 650 mg Q6H PRN ORAL Mild Pain/Temp > 100.5 10/24/16 05:00 11/23/16 04:59 10/25/16 16:24 Albuterol/ Ipratropium (DuoNeb 0.5-3(2.5)mg/3ml) 3 ml Q4H PRN HHN sob 10/24/16 09:00 10/29/16 08:59 Albuterol/ Ipratropium (DuoNeb 0.5-3(2.5)mg/3ml) 3 ml Q8HRT INH 10/24/16 15:00 10/29/16 14:59 10/26/16 07:13 Amlodipine Besylate (Norvasc) 10 mg DAILY ORAL 10/24/16 09:00 11/23/16 08:59 10/26/16 09:09 Ascorbic Acid (Vitamin C) 500 mg DAILY ORAL 10/24/16 09:00 11/23/16 08:59 10/26/16 09:08 Aspirin (Ecotrin) 81 mg DAILY ORAL 10/24/16 09:00 11/23/16 08:59 10/26/16 09:08 Dextrose STAT PRN IV Hypoglycemia 10/24/16 04:45 11/23/16 04:44 10/25/16 06:08 Heparin Sodium (Porcine) (Heparin 5000 units/ml) 5,000 units EVERY 8 HOURS SUBQ 10/24/16 06:00 11/23/16 05:59 10/26/16 06:26 Insulin Aspart (NovoLOG) BEFORE MEALS AND HS SUBQ 10/24/16 06:30 11/23/16 06:29 10/25/16 20:30 Insulin Detemir (Levemir) 26 units BEDTIME SUBQ 10/24/16 21:00 11/23/16 20:59 10/25/16 20:30 Lactulose (Cephulac) 20 gm DAILYPRN PRN ORAL Constipation 10/24/16 09:00 11/23/16 08:59 Losartan Potassium (Cozaar) 50 mg TWICE A DAY ORAL 10/24/16 09:00 11/23/16 08:59 10/26/16 09:10 Metformin HCl (Glucophage) 500 mg TWICE A DAY ORAL 10/24/16 09:00 11/23/16 08:59 10/26/16 09:08 Mirtazapine (Remeron) 7.5 mg BEDTIME ORAL 10/24/16 21:00 11/23/16 20:59 10/25/16 20:31 Multivitamins Therapeutic (Therapeutic Multivitamin) 1 ea DAILY ORAL 10/24/16 09:00 11/23/16 08:59 10/26/16 09:08 Pantoprazole (Protonix) 40 mg DAILY IVP 10/24/16 09:00 11/23/16 08:59 10/26/16 09:08 Piperacillin Sod/ Tazobactam Sod/ Dextrose (Zosyn/D5W) 110 ml @ 27.5 mls/hr Q8HR IVPB 10/24/16 06:00 10/31/16 05:59 10/26/16 06:27 Sodium Chloride (Sodium Chloride 1000ml bag) 1,000 ml @ 75 mls/hr [id number] IVLG 10/24/16 05:43 11/23/16 05:42 10/25/16 20:28 Sodium Phosphate (Fleet's Sodium Phosl Enema) 133 ml DAILYPRN PRN RECTAL Constipation 10/24/16 09:00 11/23/16 08:59 NOHEMI LOREDO Oct 26, 2016 10:41
--- NOTE | 2016-10-26 11:26 | Infectious Diseases Prog Note ---
Assessment/Plan Assessment/Plan A: The patient is a 61-year-old Sepsis, SP UTI UCx : P mirabilis, Pyuria Doubt Pna : at this time C- xray : Borderline cardiomegaly with suspected mild interstitial edema and trace left pleural effusion. Respiratory distress, SP Leukocytosis improved Wnd Cx: polymicrob. growth ( Colonizer ) ALOC COPD DM Fatty liver SP tracheostomy status post G-tube placement hx of CVA and left side hemiplegia P: cont pt on Zosyn d# 2 Monitor CBC Monitor BMP Monitor LFT Monitor Cultures ( Bl,Sp ) Hep Panel Subjective Allergies: Coded Allergies: No Known Allergies (Unverified , 02/06/16) Objective Vital Signs Last 24 Hour Vital Signs Date Time Temp Pulse Resp B/P Pulse Ox O2 Delivery O2 Flow Rate FiO2 10/26/16 09:10 137/82 10/26/16 09:09 85 137/82 10/26/16 08:00 97.7 85 18 137/82 99 Trach Collar 28 10/26/16 07:13 28 10/26/16 07:13 97 Trach Collar 5.0 28 10/26/16 07:13 87 18 98 Trach Collar 5.0 28 10/26/16 07:13 89 18 98 Trach Collar 5.0 28 10/26/16 07:13 Trach Collar 5.0 28 10/26/16 04:00 97.5 80 20 120/58 98 Trach Collar 6.0 28 10/26/16 04:00 83 10/26/16 04:00 6.0 28 10/26/16 01:11 96 Trach Collar 5.0 28 10/26/16 01:11 Trach Collar 5.0 28 10/26/16 00:00 97.2 76 20 112/58 98 Trach Collar 6.0 28 10/26/16 00:00 88 10/26/16 00:00 6.0 28 10/25/16 22:41 87 18 98 Trach Collar 5.0 28 10/25/16 22:38 85 18 98 Trach Collar 5.0 28 10/25/16 22:38 28 10/25/16 20:00 6.0 28 10/25/16 20:00 83 10/25/16 20:00 97.9 82 20 128/70 95 Mechanical Ventilator 10/25/16 19:07 97 Trach Collar 5.0 28 10/25/16 19:07 Trach Collar 5.0 28 10/25/16 17:23 97.7 10/25/16 17:00 133/73 10/25/16 16:00 6.0 28 10/25/16 16:00 85 10/25/16 16:00 98.1 86 20 133/73 98 Trach Collar 6.0 28 10/25/16 14:54 92 18 98 Trach Collar 5.0 28 10/25/16 14:44 89 18 98 Trach Collar 5.0 28 10/25/16 14:44 28 10/25/16 13:02 Trach Collar 5.0 28 10/25/16 13:02 96 Trach Collar 5.0 28 10/25/16 12:00 97.7 83 20 124/73 99 Trach Collar 6.0 28 10/25/16 12:00 85 10/25/16 12:00 6.0 28 Height (Feet): 5 Height (Inches): 8.00 Weight (Pounds): 144 Microbiology Date/Time Source Procedure Growth Status 10/23/16 21:10 Blood Blood Culture - Preliminary NO GROWTH AFTER 48 HOURS Resulted 10/23/16 21:05 Blood Blood Culture - Preliminary NO GROWTH AFTER 48 HOURS Resulted 10/25/16 06:50 Sputum Induced Gram Stain - Final Resulted 10/25/16 06:50 Sputum Induced Sputum Culture Pending Resulted 10/23/16 23:55 Nasal Nares MRSA Culture - Final Staphylococcus Aureus - Mrsa Complete 10/23/16 21:30 Urine,Clean Catch Urine Culture - Preliminary Proteus Mirabilis Mixed Gram Positive Organism Resulted 10/24/16 01:30 Sacral Swab Gram Stain Pending Resulted 10/24/16 01:30 Wound Culture - Preliminary Proteus Mirabilis Gram Negative Bacillus 2 Gram Negative Bacillus 3 Staphylococcus Aureus Strep Species, Gamma-Hemolytic Resulted Laboratory Tests Test 10/26/16 04:35 White Blood Count 9.5 K/UL (4.8-10.8) Red Blood Count 3.44 M/UL (4.70-6.10) L Hemoglobin 8.7 G/DL (14.2-18.0) L Hematocrit 27.9 % (42.0-52.0) L Mean Corpuscular Volume 81 FL (80-99) Mean Corpuscular Hemoglobin 25.4 PG (27.0-31.0) L Mean Corpuscular Hemoglobin Concent 31.3 G/DL (32.0-36.0) L Red Cell Distribution Width 15.8 % (11.6-14.8) H Platelet Count 333 K/UL (150-450) Mean Platelet Volume 7.0 FL (6.5-10.1) Neutrophils (%) (Auto) 58.4 % (45.0-75.0) Lymphocytes (%) (Auto) 30.5 % (20.0-45.0) Monocytes (%) (Auto) 5.7 % (1.0-10.0) Eosinophils (%) (Auto) 4.7 % (0.0-3.0) H Basophils (%) (Auto) 0.5 % (0.0-2.0) Sodium Level 144 mEQ/L (135-145) Potassium Level 3.7 mEQ/L (3.4-4.9) Chloride Level 102 mEQ/L (98-107) Carbon Dioxide Level 27 mEQ/L (20-30) Anion Gap 15 (5-15) Blood Urea Nitrogen 10 mg/dL (7-23) Creatinine 0.5 mg/dL (0.7-1.2) L Estimat Glomerular Filtration Rate > 60 mL/min (>60) Glucose Level 107 mg/dL (74-106) H Calcium Level 8.9 mg/dL (8.6-10.2) Current Medications Medications (Trade) Dose Ordered Sig/Anusha Route PRN Reason Start Time Stop Time Status Last Admin Dose Admin Acetaminophen (Tylenol) 650 mg Q6H PRN ORAL Mild Pain/Temp > 100.5 10/24/16 05:00 11/23/16 04:59 10/25/16 16:24 Albuterol/ Ipratropium (DuoNeb 0.5-3(2.5)mg/3ml) 3 ml Q4H PRN HHN sob 10/24/16 09:00 10/29/16 08:59 Albuterol/ Ipratropium (DuoNeb 0.5-3(2.5)mg/3ml) 3 ml Q8HRT INH 10/24/16 15:00 10/29/16 14:59 10/26/16 07:13 Amlodipine Besylate (Norvasc) 10 mg DAILY ORAL 10/24/16 09:00 11/23/16 08:59 10/26/16 09:09 Ascorbic Acid (Vitamin C) 500 mg DAILY ORAL 10/24/16 09:00 11/23/16 08:59 10/26/16 09:08 Aspirin (Ecotrin) 81 mg DAILY ORAL 10/24/16 09:00 11/23/16 08:59 10/26/16 09:08 Dextrose STAT PRN IV Hypoglycemia 10/24/16 04:45 11/23/16 04:44 10/25/16 06:08 Heparin Sodium (Porcine) (Heparin 5000 units/ml) 5,000 units EVERY 8 HOURS SUBQ 10/24/16 06:00 11/23/16 05:59 10/26/16 06:26 Insulin Aspart (NovoLOG) BEFORE MEALS AND HS SUBQ 10/24/16 06:30 11/23/16 06:29 10/25/16 20:30 Insulin Detemir (Levemir) 26 units BEDTIME SUBQ 10/24/16 21:00 11/23/16 20:59 10/25/16 20:30 Lactulose (Cephulac) 20 gm DAILYPRN PRN ORAL Constipation 10/24/16 09:00 11/23/16 08:59 Losartan Potassium (Cozaar) 50 mg TWICE A DAY ORAL 10/24/16 09:00 11/23/16 08:59 10/26/16 09:10 Metformin HCl (Glucophage) 500 mg TWICE A DAY ORAL 10/24/16 09:00 11/23/16 08:59 10/26/16 09:08 Mirtazapine (Remeron) 7.5 mg BEDTIME ORAL 10/24/16 21:00 11/23/16 20:59 10/25/16 20:31 Multivitamins Therapeutic (Therapeutic Multivitamin) 1 ea DAILY ORAL 10/24/16 09:00 11/23/16 08:59 10/26/16 09:08 Pantoprazole (Protonix) 40 mg DAILY IVP 10/24/16 09:00 11/23/16 08:59 10/26/16 09:08 Piperacillin Sod/ Tazobactam Sod/ Dextrose (Zosyn/D5W) 110 ml @ 27.5 mls/hr Q8HR IVPB 10/24/16 06:00 10/31/16 05:59 10/26/16 06:27 Sodium Chloride (Sodium Chloride 1000ml bag) 1,000 ml @ 75 mls/hr [id number] IVLG 10/24/16 05:43 11/23/16 05:42 10/25/16 20:28 Sodium Phosphate (Fleet's Sodium Phosl Enema) 133 ml DAILYPRN PRN RECTAL Constipation 10/24/16 09:00 11/23/16 08:59 RASHEED HI M.D. Oct 26, 2016 11:26
--- NOTE | 2016-10-26 11:27 | Internal Med Progress Note ---
Subjective Date of Service: Oct 26, 2016 Physician Name Brayan Dunbar Attending Physician Todd Wallace MD Current Medications Medications (Trade) Dose Ordered Sig/Anusha Route PRN Reason Start Time Stop Time Status Last Admin Dose Admin Acetaminophen (Tylenol) 650 mg Q6H PRN ORAL Mild Pain/Temp > 100.5 10/24/16 05:00 11/23/16 04:59 10/25/16 16:24 Albuterol/ Ipratropium (DuoNeb 0.5-3(2.5)mg/3ml) 3 ml Q4H PRN HHN sob 10/24/16 09:00 10/29/16 08:59 Albuterol/ Ipratropium (DuoNeb 0.5-3(2.5)mg/3ml) 3 ml Q8HRT INH 10/24/16 15:00 10/29/16 14:59 10/26/16 07:13 Amlodipine Besylate (Norvasc) 10 mg DAILY ORAL 10/24/16 09:00 11/23/16 08:59 10/26/16 09:09 Ascorbic Acid (Vitamin C) 500 mg DAILY ORAL 10/24/16 09:00 11/23/16 08:59 10/26/16 09:08 Aspirin (Ecotrin) 81 mg DAILY ORAL 10/24/16 09:00 11/23/16 08:59 10/26/16 09:08 Dextrose STAT PRN IV Hypoglycemia 10/24/16 04:45 11/23/16 04:44 10/25/16 06:08 Heparin Sodium (Porcine) (Heparin 5000 units/ml) 5,000 units EVERY 8 HOURS SUBQ 10/24/16 06:00 11/23/16 05:59 10/26/16 06:26 Insulin Aspart (NovoLOG) BEFORE MEALS AND HS SUBQ 10/24/16 06:30 11/23/16 06:29 10/25/16 20:30 Insulin Detemir (Levemir) 26 units BEDTIME SUBQ 10/24/16 21:00 11/23/16 20:59 10/25/16 20:30 Lactulose (Cephulac) 20 gm DAILYPRN PRN ORAL Constipation 10/24/16 09:00 11/23/16 08:59 Losartan Potassium (Cozaar) 50 mg TWICE A DAY ORAL 10/24/16 09:00 11/23/16 08:59 10/26/16 09:10 Metformin HCl (Glucophage) 500 mg TWICE A DAY ORAL 10/24/16 09:00 11/23/16 08:59 10/26/16 09:08 Mirtazapine (Remeron) 7.5 mg BEDTIME ORAL 10/24/16 21:00 11/23/16 20:59 10/25/16 20:31 Multivitamins Therapeutic (Therapeutic Multivitamin) 1 ea DAILY ORAL 10/24/16 09:00 11/23/16 08:59 10/26/16 09:08 Pantoprazole (Protonix) 40 mg DAILY IVP 10/24/16 09:00 11/23/16 08:59 10/26/16 09:08 Piperacillin Sod/ Tazobactam Sod/ Dextrose (Zosyn/D5W) 110 ml @ 27.5 mls/hr Q8HR IVPB 10/24/16 06:00 10/31/16 05:59 10/26/16 06:27 Sodium Chloride (Sodium Chloride 1000ml bag) 1,000 ml @ 75 mls/hr [id number] IVLG 10/24/16 05:43 11/23/16 05:42 10/25/16 20:28 Sodium Phosphate (Fleet's Sodium Phosl Enema) 133 ml DAILYPRN PRN RECTAL Constipation 10/24/16 09:00 11/23/16 08:59 Allergies: Coded Allergies: No Known Allergies (Unverified , 02/06/16) ROS Limited/Unobtainable: Yes Subjective 61 YO M admitted with respiratory failure and urinary tract infection. ROSE. Await video swallow eval today. Cover for Int Med - Dr Wallace. Objective Last Vital Signs Date Time Temp Pulse Resp B/P Pulse Ox O2 Delivery O2 Flow Rate FiO2 10/26/16 09:10 137/82 10/26/16 09:09 85 10/26/16 08:00 6.0 28 10/26/16 08:00 97.7 18 99 Trach Collar Laboratory Tests Test 10/26/16 04:35 White Blood Count 9.5 K/UL (4.8-10.8) Red Blood Count 3.44 M/UL (4.70-6.10) L Hemoglobin 8.7 G/DL (14.2-18.0) L Hematocrit 27.9 % (42.0-52.0) L Mean Corpuscular Volume 81 FL (80-99) Mean Corpuscular Hemoglobin 25.4 PG (27.0-31.0) L Mean Corpuscular Hemoglobin Concent 31.3 G/DL (32.0-36.0) L Red Cell Distribution Width 15.8 % (11.6-14.8) H Platelet Count 333 K/UL (150-450) Mean Platelet Volume 7.0 FL (6.5-10.1) Neutrophils (%) (Auto) 58.4 % (45.0-75.0) Lymphocytes (%) (Auto) 30.5 % (20.0-45.0) Monocytes (%) (Auto) 5.7 % (1.0-10.0) Eosinophils (%) (Auto) 4.7 % (0.0-3.0) H Basophils (%) (Auto) 0.5 % (0.0-2.0) Sodium Level 144 mEQ/L (135-145) Potassium Level 3.7 mEQ/L (3.4-4.9) Chloride Level 102 mEQ/L (98-107) Carbon Dioxide Level 27 mEQ/L (20-30) Anion Gap 15 (5-15) Blood Urea Nitrogen 10 mg/dL (7-23) Creatinine 0.5 mg/dL (0.7-1.2) L Estimat Glomerular Filtration Rate > 60 mL/min (>60) Glucose Level 107 mg/dL (74-106) H Calcium Level 8.9 mg/dL (8.6-10.2) Microbiology Date/Time Source Procedure Growth Status 10/23/16 21:10 Blood Blood Culture - Preliminary NO GROWTH AFTER 48 HOURS Resulted 10/23/16 21:05 Blood Blood Culture - Preliminary NO GROWTH AFTER 48 HOURS Resulted 10/25/16 06:50 Sputum Induced Gram Stain - Final Resulted 10/25/16 06:50 Sputum Induced Sputum Culture Pending Resulted 10/23/16 23:55 Nasal Nares MRSA Culture - Final Staphylococcus Aureus - Mrsa Complete 10/23/16 21:30 Urine,Clean Catch Urine Culture - Preliminary Proteus Mirabilis Mixed Gram Positive Organism Resulted 10/24/16 01:30 Sacral Swab Gram Stain Pending Resulted 10/24/16 01:30 Wound Culture - Preliminary Proteus Mirabilis Gram Negative Bacillus 2 Gram Negative Bacillus 3 Staphylococcus Aureus Strep Species, Gamma-Hemolytic Resulted Intake and Output 10/25/16 10/26/16 19:00 07:00 Intake Total 1550.0 ml 1255.0 ml Output Total 950 ml 1450 ml Balance 600.0 ml -195.0 ml Intake Oral 540 ml 360 ml IV Total 1010.0 ml 895.0 ml Output Urine Total 950 ml 1450 ml Objective General Appearance: lethargic, thin EENT: normal ENT inspection Neck: non-tender, normal alignment, supple, other - Trach collar Cardiovascular: normal peripheral pulses, normal rate, regular rhythm, no gallop/murmur, no JVD Respiratory/Chest: respiratory distress, crackles/rales, rhonchi - bilaterally , expiratory wheezing Abdomen: normal bowel sounds, non tender, soft, no organomegaly, no mass Skin: normal pigmentation, warm/dry Assessment/Plan Problem List: (1) Lactic acid acidosis (2) Leukocytosis (3) Nausea & vomiting (4) Respiratory failure (5) SOB (shortness of breath) (6) Cerebral vascular disease (7) HTN (hypertension) Assessment & Plan: Continue norvasc and cozar. (8) COPD (chronic obstructive pulmonary disease) Assessment & Plan: See pulmonary note. Cont duoneb. (9) Diabetes mellitus type II, uncontrolled Assessment & Plan: Cont levemir, novolog sliding scale and metformin. (10) Hypercholesteremia (11) Sepsis (12) UTI (urinary tract infection) Assessment & Plan: Proteus mirabilis. See ID note-Cont zosyn. (13) Dysphagia Assessment & Plan: Video swallow BRAYAN Clemons Oct 26, 2016 11:27
[2016-10-26 12:00] VITALS: BP 103/49
--- NOTE | 2016-10-26 12:18 | Diagnostic Imaging Report ---
Indication: Abdominal pain Technique: Bernal-scale and duplex images of the upper abdomen were obtained Comparison: Findings: . Gallbladder gallbladder contains a large gallstone. There may be some sludge. No wall thickening or pericholecystic fluid. Sonographic Alamo's sign is negative. Common bile duct measures 4 mm in diameter. No intrahepatic biliary ductal dilatation. Liver demonstrates patchy increased echogenicity. No definite surface nodularity. No focal abnormality. Portal vein and hepatic veins are patent. Pancreas is unremarkable. Spleen is unremarkable. Left kidney measures 11.8 cm in length. Right kidney measures 12.1 cm length. Both kidneys demonstrate normal echogenicity. Both kidneys demonstrate some irregular renal contour and possibly some cortical thinning.. There is no hydronephrosis. Right kidney demonstrates a 3.2 cm lower pole cyst within the renal sinus. . Abdominal aorta is partially obscured by bowel gas, visualized portions are non-aneurysmal. Impression: Cholelithiasis. Negative for dilated ducts Patchy increased hepatic echogenicity, consistent with hepatocellular disease. Possibly fatty change, but other etiologies also possible. Right lower pole renal cysts incidentally noted Note suboptimal visualization of the abdominal aorta
[2016-10-26 16:00] VITALS: BP 133/66
[2016-10-26 19:00] VITALS: BP 140/66
[2016-10-26] MEDS: Levemir Flexpen SUBQ SCH (21:37)
--- NOTE | 2016-10-27 00:08 | Cardiology Report ---
APPROVED REPORT EKG Measurement Heart [id number] Sinus tachycardia Inferior infarct, age undetermined Abnormal ECG
[2016-10-27 00:38] VITALS: BP 136/82
[2016-10-27 04:00] VITALS: BP 147/83
[2016-10-27] MEDS: Piperacillin/Tazobactam 3.375 GM in D5W 110 ML IVPB SCH (05:07)
[2016-10-27] MEDS: Heparin 5000 units/ml inj SUBQ SCH ×3 (05:08→21:22)
[2016-10-27 05:45] LABS: BASOPHILS % (AUTO) 0.8 % (0.0-2.0); EOSINOPHILS % (AUTO) 3.9 % (0.0-3.0); LYMPHOCYTES % (AUTO) 28.4 % (20.0-45.0); MEAN CORPUSCULAR HEMOGLOBIN 25.5 PG (27.0-31.0); MEAN CORPUSCULAR HGB CONC 31.4 G/DL (32.0-36.0); MEAN CORPUSCULAR VOLUME 81 FL (80-99); MEAN PLATELET VOLUME 7.4 FL (6.5-10.1); MONOCYTES % (AUTO) 4.5 % (1.0-10.0); NEUTROPHILS % (AUTO) 62.5 % (45.0-75.0); PLATELET COUNT 347 K/UL (150-450); RED BLOOD COUNT 3.43 M/UL (4.70-6.10); RED CELL DISTRIBUTION WIDTH 15.8 % (11.6-14.8); WHITE BLOOD COUNT 10.7 K/UL (4.8-10.8)
[2016-10-27 06:04] LABS: ALANINE AMINOTRANSFERASE 30 U/L (3-41); ALBUMIN/GLOBULIN RATIO 0.8 (1.0-2.7); ANION GAP 15 (5-15); ASPARTATE AMINO TRANSFERASE 13 U/L (5-40); CALCIUM 9.3 mg/dL (8.6-10.2); CARBON DIOXIDE 28 mEQ/L (20-30); CHLORIDE 103 mEQ/L (98-107); CREATININE 0.5 mg/dL (0.7-1.2); GLOMERULAR FILTRATION RATE > 60 mL/min (>60); HEMOLYSIS 0; POTASSIUM 3.4 mEQ/L (3.4-4.9); SODIUM 146 mEQ/L (135-145); TOTAL PROTEIN 6.7 g/dL (6.6-8.7)
[2016-10-27] MEDS: NovoLOG Insulin Flexpen SUBQ SCH ×4 (06:30→20:39)
[2016-10-27] MEDS: DuoNeb 0.5-3(2.5)mg/3ml neb INH SCH ×3 (07:00→23:39)
[2016-10-27 08:00] VITALS: BP 142/80
[2016-10-27] MEDS: metFORMIN 500mg tab ORAL SCH ×2 (09:00→17:55)
[2016-10-27 10:38] LABS: OTHERS PATHOLOGIST COMMENT
[2016-10-27] MEDS: Ascorbic Acid 500mg tab ORAL SCH (10:48)
[2016-10-27] MEDS: Pantoprazole Inj IVP SCH (10:48)
[2016-10-27] MEDS: Aspirin EC 81mg tab ORAL SCH (10:49)
[2016-10-27] MEDS: Multivitamin w/Minerals tab ORAL SCH (10:49)
[2016-10-27] MEDS: Losartan 50mg tab ORAL SCH ×2 (10:49→17:55)
--- NOTE | 2016-10-27 11:09 | Pulmonology Progress Note ---
Assessment/Plan Problems: (1) Respiratory failure (2) Sepsis (3) COPD (chronic obstructive pulmonary disease) (4) Diabetes mellitus type II, uncontrolled Respiratory: monitor respiratory rate, adjust FIO2 Cardiac: continue to monitor HR/BP Renal: F/U I&O, check electrolytes Infectious Disease: check cultures, continue antibiotics Gastrointestinal: continue feedings/current rate Endocrine: monitor blood sugar, check TSH, continue sliding scale insulin Hematologic: monitor H/H, transfuse if hgb<8.5 Neurologic: keep patient comfortable Affect: PRN ativan Prophylaxis: Protonix, Heparin Notes Reviewed: order booker, cardio, renal Discussed with: nurses, consultants, gearcase assembler Subjective ROS Limited/Unobtainable: No Constitutional: Reports: no symptoms HEENT: Repors: no symptoms Allergies: Coded Allergies: No Known Allergies (Unverified , 02/06/16) Objective Last 24 Hour Vital Signs Date Time Temp Pulse Resp B/P Pulse Ox O2 Delivery O2 Flow Rate FiO2 10/27/16 10:49 110/61 10/27/16 10:49 81 110/61 10/27/16 08:00 97.0 87 21 142/80 99 T-piece 10/27/16 07:09 84 18 98 Trach Collar 5.0 10/27/16 07:00 85 18 100 Trach Collar 5.0 10/27/16 07:00 100 Trach Collar 5.0 10/27/16 07:00 Trach Collar 5.0 10/27/16 07:00 10/27/16 04:00 90 10/27/16 04:00 6.0 10/27/16 04:00 97.7 89 20 147/83 98 T-piece 10/27/16 00:38 97.4 85 18 136/82 99 T-piece 10/27/16 00:00 6.0 10/27/16 00:00 85 10/26/16 22:57 82 18 98 Trach Collar 5.0 10/26/16 22:43 Trach Collar 5.0 10/26/16 22:43 28 10/26/16 22:41 100 Trach Collar 5.0 10/26/16 22:40 82 18 100 Trach Collar 5.0 10/26/16 22:39 100 Trach Collar 5.0 10/26/16 22:39 100 Trach Collar 5.0 28 10/26/16 20:30 80 10/26/16 20:00 6.0 28 10/26/16 19:00 97.7 83 20 140/66 99 Trach Collar 5.0 10/26/16 18:03 133/66 10/26/16 16:00 97.7 89 20 133/66 99 Trach Collar 5.0 10/26/16 16:00 6.0 28 10/26/16 16:00 6.0 28 10/26/16 15:49 89 10/26/16 15:08 88 18 98 Trach Collar 5.0 28 10/26/16 14:59 90 18 98 Trach Collar 5.0 28 10/26/16 14:59 28 10/26/16 13:04 Trach Collar 5.0 28 10/26/16 13:04 97 Trach Collar 5.0 28 10/26/16 12:00 97.7 84 20 103/49 100 Trach Collar 6.0 28 10/26/16 12:00 84 10/26/16 12:00 6.0 28 Intake and Output 10/26/16 10/27/16 19:00 07:00 Intake Total 1435.0 ml 1125.0 ml Output Total 1000 ml 3675 ml Balance 435.0 ml -2550.0 ml Intake Oral 500 ml 120 ml IV Total 935.0 ml 1005.0 ml Output Urine Total 1000 ml 3675 ml Objective Status: awake HEENT: atraumatic, normocephalic, trach in place Lungs: rhonchi Heart: HR/BP stable Abdomen: soft, non-tender Extremities: no C/C/E, edema Microbiology Date/Time Source Procedure Growth Status 10/25/16 06:50 Sputum Induced Gram Stain - Final Resulted 10/25/16 06:50 Sputum Culture - Preliminary Gram Negative Bacillus 1 Resulted Laboratory Tests 10/27/16 03:36: White Blood Count 10.7, Red Blood Count 3.43L, Hemoglobin 8.7L, Hematocrit 27.8L , Mean Corpuscular Volume 81, Mean Corpuscular Hemoglobin 25.5L, Mean Corpuscular Hemoglobin Concent 31.4L, Red Cell Distribution Width 15.8H, Platelet Count 347, Mean Platelet Volume 7.4, Neutrophils (%) (Auto) 62.5, Lymphocytes (%) (Auto) 28.4, Monocytes (%) (Auto) 4.5, Eosinophils (%) (Auto) 3.9H, Basophils (%) (Auto) 0.8, Sodium Level 146H, Potassium Level 3.4, Chloride Level 103, Carbon Dioxide Level 28, Anion Gap 15, Blood Urea Nitrogen 9 , Creatinine 0.5L, Estimat Glomerular Filtration Rate > 60, Glucose Level 55L, Calcium Level 9.3, Total Bilirubin 0.2, Aspartate Amino Transf (AST/SGOT) 13, Alanine Aminotransferase (ALT/SGPT) 30, Alkaline Phosphatase 81, Total Protein 6.7, Albumin 3.1L, Globulin 3.6, Albumin/Globulin Ratio 0.8L Current Medications Medications (Trade) Dose Ordered Sig/Anusha Route PRN Reason Start Time Stop Time Status Last Admin Dose Admin Acetaminophen (Tylenol) 650 mg Q6H PRN ORAL Mild Pain/Temp > 100.5 10/24/16 05:00 11/23/16 04:59 10/25/16 16:24 Albuterol/ Ipratropium (DuoNeb 0.5-3(2.5)mg/3ml) 3 ml Q4H PRN HHN sob 10/24/16 09:00 10/29/16 08:59 Albuterol/ Ipratropium (DuoNeb 0.5-3(2.5)mg/3ml) 3 ml Q8HRT INH 10/24/16 15:00 10/29/16 14:59 10/27/16 07:00 Amlodipine Besylate (Norvasc) 10 mg DAILY ORAL 10/24/16 09:00 11/23/16 08:59 10/27/16 10:49 Ascorbic Acid (Vitamin C) 500 mg DAILY ORAL 10/24/16 09:00 11/23/16 08:59 10/27/16 10:48 Aspirin (Ecotrin) 81 mg DAILY ORAL 10/24/16 09:00 11/23/16 08:59 10/27/16 10:49 Dextrose STAT PRN IV Hypoglycemia 10/24/16 04:45 11/23/16 04:44 10/27/16 05:06 Heparin Sodium (Porcine) (Heparin 5000 units/ml) 5,000 units EVERY 8 HOURS SUBQ 10/24/16 06:00 11/23/16 05:59 10/27/16 05:08 Insulin Aspart (NovoLOG) BEFORE MEALS AND HS SUBQ 10/24/16 06:30 11/23/16 06:29 10/26/16 21:38 Insulin Detemir (Levemir) 26 units BEDTIME SUBQ 10/24/16 21:00 11/23/16 20:59 10/26/16 21:37 Lactulose (Cephulac) 20 gm DAILYPRN PRN ORAL Constipation 10/24/16 09:00 11/23/16 08:59 Losartan Potassium (Cozaar) 50 mg TWICE A DAY ORAL 10/24/16 09:00 11/23/16 08:59 10/27/16 10:49 Metformin HCl (Glucophage) 500 mg TWICE A DAY ORAL 10/24/16 09:00 11/23/16 08:59 10/26/16 18:03 Mirtazapine (Remeron) 7.5 mg BEDTIME ORAL 10/24/16 21:00 11/23/16 20:59 10/26/16 21:39 Multivitamins Therapeutic (Therapeutic Multivitamin) 1 ea DAILY ORAL 10/24/16 09:00 11/23/16 08:59 10/27/16 10:49 Pantoprazole (Protonix) 40 mg DAILY IVP 10/24/16 09:00 11/23/16 08:59 10/27/16 10:48 Piperacillin Sod/ Tazobactam Sod/ Dextrose (Zosyn/D5W) 110 ml @ 27.5 mls/hr Q8HR IVPB 10/24/16 06:00 10/31/16 05:59 10/27/16 05:07 Sodium Chloride (Sodium Chloride 1000ml bag) 1,000 ml @ 75 mls/hr [id number] IVLG 10/24/16 05:43 11/23/16 05:42 10/27/16 01:05 Sodium Phosphate (Fleet's Sodium Phosl Enema) 133 ml DAILYPRN PRN RECTAL Constipation 10/24/16 09:00 11/23/16 08:59 NOHEMI LOREDO Oct 27, 2016 11:08
[2016-10-27 12:00] VITALS: BP 129/65
--- NOTE | 2016-10-27 12:04 | Diagnostic Imaging Report ---
Indication: DYSPNEA Technique: One view of the chest Comparison: none Findings: Tracheostomy remains There is some atelectasis in the right perihilar region. There is some atelectasis and possibly consolidation at left lung base. There may be a small left pleural effusion. Findings are unchanged. Impression: Unchanged, over 2 days, findings as above.
--- NOTE | 2016-10-27 12:15 | Infectious Diseases Prog Note ---
Assessment/Plan Assessment/Plan A: The patient is a 61-year-old Sepsis, SP UTI UCx : ESBL P mirabilis, GNR Pyuria Doubt Pna : at this time SCx: GNR ( colonizer ) C- xray : Borderline cardiomegaly with suspected mild interstitial edema and trace left pleural effusion. Respiratory distress, SP Leukocytosis improved Wnd Cx: polymicrob. growth ( Colonizer ) Hep A/B/C: Neg US: Cholelithiasis. Negative for dilated ducts ALOC COPD DM Fatty liver SP tracheostomy status post G-tube placement hx of CVA and left side hemiplegia P: cont pt on Zosyn d# 3 change to Merrem d # 1 / Monitor CBC Monitor BMP Monitor LFT Monitor Cultures ( Bl,Sp ) Subjective Constitutional: Denies: anorexia, chills, drenching sweats, fatigue, fever, no symptoms, other Allergies: Coded Allergies: No Known Allergies (Unverified , 02/06/16) Objective Vital Signs Last 24 Hour Vital Signs Date Time Temp Pulse Resp B/P Pulse Ox O2 Delivery O2 Flow Rate FiO2 10/27/16 10:49 110/61 10/27/16 10:49 81 110/61 10/27/16 08:00 97.0 87 21 142/80 99 T-piece 10/27/16 07:09 84 18 98 Trach Collar 5.0 10/27/16 07:00 85 18 100 Trach Collar 5.0 10/27/16 07:00 100 Trach Collar 5.0 28 10/27/16 07:00 Trach Collar 5.0 28 10/27/16 07:00 28 10/27/16 04:00 90 10/27/16 04:00 6.0 28 10/27/16 04:00 97.7 89 20 147/83 98 T-piece 28 10/27/16 00:38 97.4 85 18 136/82 99 T-piece 10/27/16 00:00 6.0 28 10/27/16 00:00 85 10/26/16 22:57 82 18 98 Trach Collar 5.0 28 10/26/16 22:43 Trach Collar 5.0 28 10/26/16 22:43 28 10/26/16 22:41 100 Trach Collar 5.0 10/26/16 22:40 82 18 100 Trach Collar 5.0 28 10/26/16 22:39 100 Trach Collar 5.0 28 10/26/16 22:39 100 Trach Collar 5.0 28 10/26/16 20:30 80 10/26/16 20:00 6.0 28 10/26/16 19:00 97.7 83 20 140/66 99 Trach Collar 5.0 10/26/16 18:03 133/66 10/26/16 16:00 97.7 89 20 133/66 99 Trach Collar 5.0 10/26/16 16:00 6.0 28 10/26/16 16:00 6.0 28 10/26/16 15:49 89 10/26/16 15:08 88 18 98 Trach Collar 5.0 28 10/26/16 14:59 90 18 98 Trach Collar 5.0 28 10/26/16 14:59 28 10/26/16 13:04 Trach Collar 5.0 28 10/26/16 13:04 97 Trach Collar 5.0 28 Height (Feet): 5 Height (Inches): 8.00 Weight (Pounds): 144 HEENT: anicteric Respiratory/Chest: no respiratory distress Cardiovascular: regular rhythm Abdomen: no organomegaly Microbiology Date/Time Source Procedure Growth Status 10/25/16 06:50 Sputum Induced Gram Stain - Final Resulted 10/25/16 06:50 Sputum Culture - Preliminary Gram Negative Bacillus 1 Resulted Laboratory Tests Test 10/27/16 03:36 White Blood Count 10.7 K/UL (4.8-10.8) Red Blood Count 3.43 M/UL (4.70-6.10) L Hemoglobin 8.7 G/DL (14.2-18.0) L Hematocrit 27.8 % (42.0-52.0) L Mean Corpuscular Volume 81 FL (80-99) Mean Corpuscular Hemoglobin 25.5 PG (27.0-31.0) L Mean Corpuscular Hemoglobin Concent 31.4 G/DL (32.0-36.0) L Red Cell Distribution Width 15.8 % (11.6-14.8) H Platelet Count 347 K/UL (150-450) Mean Platelet Volume 7.4 FL (6.5-10.1) Neutrophils (%) (Auto) 62.5 % (45.0-75.0) Lymphocytes (%) (Auto) 28.4 % (20.0-45.0) Monocytes (%) (Auto) 4.5 % (1.0-10.0) Eosinophils (%) (Auto) 3.9 % (0.0-3.0) H Basophils (%) (Auto) 0.8 % (0.0-2.0) Sodium Level 146 mEQ/L (135-145) H Potassium Level 3.4 mEQ/L (3.4-4.9) Chloride Level 103 mEQ/L (98-107) Carbon Dioxide Level 28 mEQ/L (20-30) Anion Gap 15 (5-15) Blood Urea Nitrogen 9 mg/dL (7-23) Creatinine 0.5 mg/dL (0.7-1.2) L Estimat Glomerular Filtration Rate > 60 mL/min (>60) Glucose Level 55 mg/dL (74-106) L Calcium Level 9.3 mg/dL (8.6-10.2) Total Bilirubin 0.2 mg/dL (0.0-1.2) Aspartate Amino Transf (AST/SGOT) 13 U/L (5-40) Alanine Aminotransferase (ALT/SGPT) 30 U/L (3-41) Alkaline Phosphatase 81 U/L (40-129) Total Protein 6.7 g/dL (6.6-8.7) Albumin 3.1 g/dL (3.5-5.2) L Globulin 3.6 g/dL Albumin/Globulin Ratio 0.8 (1.0-2.7) L Current Medications Medications (Trade) Dose Ordered Sig/Anusha Route PRN Reason Start Time Stop Time Status Last Admin Dose Admin Acetaminophen (Tylenol) 650 mg Q6H PRN ORAL Mild Pain/Temp > 100.5 10/24/16 05:00 11/23/16 04:59 10/25/16 16:24 Albuterol/ Ipratropium (DuoNeb 0.5-3(2.5)mg/3ml) 3 ml Q4H PRN HHN sob 10/24/16 09:00 10/29/16 08:59 Albuterol/ Ipratropium (DuoNeb 0.5-3(2.5)mg/3ml) 3 ml Q8HRT INH 10/24/16 15:00 10/29/16 14:59 10/27/16 07:00 Amlodipine Besylate (Norvasc) 10 mg DAILY ORAL 10/24/16 09:00 11/23/16 08:59 10/27/16 10:49 Ascorbic Acid (Vitamin C) 500 mg DAILY ORAL 10/24/16 09:00 11/23/16 08:59 10/27/16 10:48 Aspirin (Ecotrin) 81 mg DAILY ORAL 10/24/16 09:00 11/23/16 08:59 10/27/16 10:49 Dextrose STAT PRN IV Hypoglycemia 10/24/16 04:45 11/23/16 04:44 10/27/16 05:06 Heparin Sodium (Porcine) (Heparin 5000 units/ml) 5,000 units EVERY 8 HOURS SUBQ 10/24/16 06:00 11/23/16 05:59 10/27/16 05:08 Insulin Aspart (NovoLOG) BEFORE MEALS AND HS SUBQ 10/24/16 06:30 11/23/16 06:29 10/26/16 21:38 Insulin Detemir (Levemir) 26 units BEDTIME SUBQ 10/24/16 21:00 11/23/16 20:59 10/26/16 21:37 Lactulose (Cephulac) 20 gm DAILYPRN PRN ORAL Constipation 10/24/16 09:00 11/23/16 08:59 Losartan Potassium (Cozaar) 50 mg TWICE A DAY ORAL 10/24/16 09:00 11/23/16 08:59 10/27/16 10:49 Metformin HCl (Glucophage) 500 mg TWICE A DAY ORAL 10/24/16 09:00 11/23/16 08:59 10/26/16 18:03 Mirtazapine (Remeron) 7.5 mg BEDTIME ORAL 10/24/16 21:00 11/23/16 20:59 10/26/16 21:39 Multivitamins Therapeutic (Therapeutic Multivitamin) 1 ea DAILY ORAL 10/24/16 09:00 11/23/16 08:59 10/27/16 10:49 Pantoprazole (Protonix) 40 mg DAILY IVP 10/24/16 09:00 11/23/16 08:59 10/27/16 10:48 Piperacillin Sod/ Tazobactam Sod/ Dextrose (Zosyn/D5W) 110 ml @ 27.5 mls/hr Q8HR IVPB 10/24/16 06:00 10/31/16 05:59 10/27/16 05:07 Sodium Chloride (Sodium Chloride 1000ml bag) 1,000 ml @ 75 mls/hr [id number] IVLG 10/24/16 05:43 11/23/16 05:42 10/27/16 01:05 Sodium Phosphate (Fleet's Sodium Phosl Enema) 133 ml DAILYPRN PRN RECTAL Constipation 10/24/16 09:00 11/23/16 08:59 RASHEED HI M.D. Oct 27, 2016 12:15
[2016-10-27] MEDS: Meropenem 1 GM in NS 110 ML IVPB SCH ×2 (14:55→21:21)
[2016-10-27 16:00] VITALS: BP 133/69
[2016-10-27] MEDS ORDERED: Norco 10mg/325mg tab ORAL PRN (19:00)
--- NOTE | 2016-10-27 19:12 | Internal Med Progress Note ---
Subjective Date of Service: Oct 27, 2016 Physician Name Brayan Doty Attending Physician Todd Wallace MD Current Medications Medications (Trade) Dose Ordered Sig/Anusha Route PRN Reason Start Time Stop Time Status Last Admin Dose Admin Acetaminophen (Tylenol) 650 mg Q6H PRN ORAL Mild Pain/Temp > 100.5 10/24/16 05:00 11/23/16 04:59 10/27/16 15:59 Acetaminophen/ Hydrocodone Bitart ([place] 10/325) 1 ea Q6HR PRN ORAL For Pain 10/27/16 19:00 11/03/16 18:59 UNV Albuterol/ Ipratropium (DuoNeb 0.5-3(2.5)mg/3ml) 3 ml Q8HRT INH 10/24/16 15:00 10/29/16 14:59 10/27/16 14:47 Albuterol/ Ipratropium 3 ml 3 ml Q4H PRN HHN sob 10/24/16 09:00 10/29/16 08:59 Amlodipine Besylate (Norvasc) 10 mg DAILY ORAL 10/24/16 09:00 11/23/16 08:59 10/27/16 10:49 Ascorbic Acid (Vitamin C) 500 mg DAILY ORAL 10/24/16 09:00 11/23/16 08:59 10/27/16 10:48 Aspirin (Ecotrin) 81 mg DAILY ORAL 10/24/16 09:00 11/23/16 08:59 10/27/16 10:49 Dextrose (Dextrose 50%) STAT PRN IV Hypoglycemia 10/24/16 04:45 11/23/16 04:44 10/27/16 05:06 Heparin Sodium (Porcine) (Heparin 5000 units/ml) 5,000 units EVERY 8 HOURS SUBQ 10/24/16 06:00 11/23/16 05:59 10/27/16 14:56 Insulin Aspart (NovoLOG) BEFORE MEALS AND HS SUBQ 10/24/16 06:30 11/23/16 06:29 10/27/16 16:00 Insulin Detemir (Levemir) 26 units BEDTIME SUBQ 10/24/16 21:00 11/23/16 20:59 10/26/16 21:37 Lactulose (Cephulac) 20 gm DAILYPRN PRN ORAL Constipation 10/24/16 09:00 11/23/16 08:59 Losartan Potassium (Cozaar) 50 mg TWICE A DAY ORAL 10/24/16 09:00 11/23/16 08:59 10/27/16 17:55 Meropenem/Sodium Chloride (Merrem/Sodium Chloride) 110 ml @ 220 mls/hr Q8HR IVPB 10/27/16 14:00 11/01/16 13:59 10/27/16 14:55 Metformin HCl (Glucophage) 500 mg TWICE A DAY ORAL 10/24/16 09:00 11/23/16 08:59 10/27/16 17:55 Mirtazapine (Remeron) 7.5 mg BEDTIME ORAL 10/24/16 21:00 11/23/16 20:59 10/26/16 21:39 Multivitamins Therapeutic (Therapeutic Multivitamin) 1 ea DAILY ORAL 10/24/16 09:00 11/23/16 08:59 10/27/16 10:49 Pantoprazole (Protonix) 40 mg DAILY IVP 10/24/16 09:00 11/23/16 08:59 10/27/16 10:48 Sodium Chloride (Sodium Chloride 1000ml bag) 1,000 ml @ 75 mls/hr [id number] IVLG 10/24/16 05:43 11/23/16 05:42 10/27/16 13:37 Sodium Phosphate (Fleet's Sodium Phosl Enema) 133 ml DAILYPRN PRN RECTAL Constipation 10/24/16 09:00 11/23/16 08:59 Allergies: Coded Allergies: No Known Allergies (Unverified , 02/06/16) ROS Limited/Unobtainable: No Constitutional: Reports: no symptoms HEENT: Reports: no symptoms Cardiovascular: Reports: no symptoms Respiratory: Reports: no symptoms Gastrointestinal/Abdominal: Reports: no symptoms Genitourinary: Reports: no symptoms Neurologic/Psychiatric: Reports: no symptoms Subjective 61 YO M admitted with respiratory failure and urinary tract infection. ROSE. Cover for Int Asim - Dr Wallace. Objective Last Vital Signs Date Time Temp Pulse Resp B/P Pulse Ox O2 Delivery O2 Flow Rate FiO2 10/27/16 17:55 133/69 10/27/16 16:00 97.2 83 18 99 T-piece 28 10/27/16 16:00 6.0 Laboratory Tests Test 10/27/16 03:36 White Blood Count 10.7 K/UL (4.8-10.8) Red Blood Count 3.43 M/UL (4.70-6.10) L Hemoglobin 8.7 G/DL (14.2-18.0) L Hematocrit 27.8 % (42.0-52.0) L Mean Corpuscular Volume 81 FL (80-99) Mean Corpuscular Hemoglobin 25.5 PG (27.0-31.0) L Mean Corpuscular Hemoglobin Concent 31.4 G/DL (32.0-36.0) L Red Cell Distribution Width 15.8 % (11.6-14.8) H Platelet Count 347 K/UL (150-450) Mean Platelet Volume 7.4 FL (6.5-10.1) Neutrophils (%) (Auto) 62.5 % (45.0-75.0) Lymphocytes (%) (Auto) 28.4 % (20.0-45.0) Monocytes (%) (Auto) 4.5 % (1.0-10.0) Eosinophils (%) (Auto) 3.9 % (0.0-3.0) H Basophils (%) (Auto) 0.8 % (0.0-2.0) Sodium Level 146 mEQ/L (135-145) H Potassium Level 3.4 mEQ/L (3.4-4.9) Chloride Level 103 mEQ/L (98-107) Carbon Dioxide Level 28 mEQ/L (20-30) Anion Gap 15 (5-15) Blood Urea Nitrogen 9 mg/dL (7-23) Creatinine 0.5 mg/dL (0.7-1.2) L Estimat Glomerular Filtration Rate > 60 mL/min (>60) Glucose Level 55 mg/dL (74-106) L Calcium Level 9.3 mg/dL (8.6-10.2) Total Bilirubin 0.2 mg/dL (0.0-1.2) Aspartate Amino Transf (AST/SGOT) 13 U/L (5-40) Alanine Aminotransferase (ALT/SGPT) 30 U/L (3-41) Alkaline Phosphatase 81 U/L (40-129) Total Protein 6.7 g/dL (6.6-8.7) Albumin 3.1 g/dL (3.5-5.2) L Globulin 3.6 g/dL Albumin/Globulin Ratio 0.8 (1.0-2.7) L Microbiology Date/Time Source Procedure Growth Status 10/25/16 06:50 Sputum Induced Gram Stain - Final Resulted 10/25/16 06:50 Sputum Culture - Preliminary Gram Negative Bacillus 1 Resulted Intake and Output 10/26/16 10/27/16 19:00 07:00 Intake Total 1435.0 ml 1125.0 ml Output Total 1000 ml 3675 ml Balance 435.0 ml -2550.0 ml Intake Oral 500 ml 120 ml IV Total 935.0 ml 1005.0 ml Output Urine Total 1000 ml 3675 ml Objective General Appearance: lethargic, thin EENT: normal ENT inspection Neck: non-tender, normal alignment, supple, other - Trach collar Cardiovascular: normal peripheral pulses, normal rate, regular rhythm, no gallop/murmur, no JVD Respiratory/Chest: respiratory distress, crackles/rales, rhonchi - bilaterally , expiratory wheezing Abdomen: normal bowel sounds, non tender, soft, no organomegaly, no mass Skin: normal pigmentation, warm/dry Assessment/Plan Problem List: (1) Lactic acid acidosis (2) Leukocytosis (3) Nausea & vomiting (4) Respiratory failure (5) SOB (shortness of breath) (6) Cerebral vascular disease (7) HTN (hypertension) Assessment & Plan: Continue norvasc and cozar. (8) COPD (chronic obstructive pulmonary disease) Assessment & Plan: See pulmonary note. Cont duoneb. (9) Diabetes mellitus type II, uncontrolled Assessment & Plan: Cont levemir, novolog sliding scale and metformin. (10) Hypercholesteremia (11) Sepsis (12) UTI (urinary tract infection) Assessment & Plan: Proteus mirabilis. See ID note-Cont meropenem. (13) Dysphagia Assessment & Plan: See speech therapy note Status: not improved Assessment/Plan Discharge planning BRAYAN DOTY Oct 27, 2016 19:12
[2016-10-27 20:00] VITALS: BP 138/72
[2016-10-27] MEDS: Levemir Flexpen SUBQ SCH (20:39)
[2016-10-28] VITALS: BP 150/82
[2016-10-28 04:00] VITALS: BP 154/90
[2016-10-28] MEDS: NovoLOG Insulin Flexpen SUBQ SCH ×4 (06:30→20:30)
[2016-10-28] MEDS: Heparin 5000 units/ml inj SUBQ SCH ×3 (06:45→22:01)
[2016-10-28] MEDS: Meropenem 1 GM in NS 110 ML IVPB SCH ×3 (06:46→22:01)
[2016-10-28] MEDS: DuoNeb 0.5-3(2.5)mg/3ml neb INH SCH ×3 (07:25→23:01)
[2016-10-28 08:00] VITALS: BP 155/88
[2016-10-28 08:29] LABS: BASOPHILS % (AUTO) 0.6 % (0.0-2.0); EOSINOPHILS % (AUTO) 3.6 % (0.0-3.0); LYMPHOCYTES % (AUTO) 20.3 % (20.0-45.0); MEAN CORPUSCULAR HEMOGLOBIN 24.8 PG (27.0-31.0); MEAN CORPUSCULAR HGB CONC 30.3 G/DL (32.0-36.0); MEAN CORPUSCULAR VOLUME 82 FL (80-99); MEAN PLATELET VOLUME 7.2 FL (6.5-10.1); MONOCYTES % (AUTO) 5.3 % (1.0-10.0); NEUTROPHILS % (AUTO) 70.3 % (45.0-75.0); PLATELET COUNT 380 K/UL (150-450); RED BLOOD COUNT 3.85 M/UL (4.70-6.10); RED CELL DISTRIBUTION WIDTH 16.2 % (11.6-14.8); WHITE BLOOD COUNT 13.8 K/UL (4.8-10.8)
[2016-10-28 08:40] LABS: ALANINE AMINOTRANSFERASE 30 U/L (3-41); ALBUMIN/GLOBULIN RATIO 0.9 (1.0-2.7); ANION GAP 13 (5-15); ASPARTATE AMINO TRANSFERASE 18 U/L (5-40); CALCIUM 9.3 mg/dL (8.6-10.2); CARBON DIOXIDE 31 mEQ/L (20-30); CHLORIDE 101 mEQ/L (98-107); CREATININE 0.5 mg/dL (0.7-1.2); GLOMERULAR FILTRATION RATE > 60 mL/min (>60); HEMOLYSIS 3; POTASSIUM 3.4 mEQ/L (3.4-4.9); SODIUM 145 mEQ/L (135-145); TOTAL PROTEIN 7.1 g/dL (6.6-8.7)
[2016-10-28] MEDS: Pantoprazole Inj IVP SCH (08:41)
[2016-10-28] MEDS: Multivitamin w/Minerals tab ORAL SCH (08:42)
[2016-10-28] MEDS: Ascorbic Acid 500mg tab ORAL SCH (08:42)
[2016-10-28] MEDS: Aspirin EC 81mg tab ORAL SCH (08:42)
[2016-10-28] MEDS: metFORMIN 500mg tab ORAL SCH ×2 (08:43→18:10)
[2016-10-28] MEDS: Losartan 50mg tab ORAL SCH ×2 (08:47→18:10)
--- NOTE | 2016-10-28 10:25 | Diagnostic Imaging Report ---
APPROVED REPORT CPT Code: 46715 Present Symptoms Shortness of breath BILATERAL: Imaging reveals a patent deep venous system bilaterally. There is no evidence of thrombus within the femoral, popliteal or tibial segments. The greater saphenous veins are also within normal limits. Doppler indicates normal spontaneous flow within these segments.
--- NOTE | 2016-10-28 10:53 | Pulmonology Progress Note ---
Assessment/Plan Problems: (1) Respiratory failure (2) Sepsis (3) COPD (chronic obstructive pulmonary disease) (4) Diabetes mellitus type II, uncontrolled Respiratory: monitor respiratory rate Renal: F/U I&O Infectious Disease: check cultures Gastrointestinal: continue feedings/current rate Endocrine: monitor blood sugar, check TSH, check HgA1C Hematologic: monitor H/H Neurologic: PRN Ativan Affect: PRN ativan Prophylaxis: Protonix Notes Reviewed: manufacturing coordinator Discussed with: case picker Subjective ROS Limited/Unobtainable: No Interval Events: comfortable Allergies: Coded Allergies: No Known Allergies (Unverified , 02/06/16) Objective Last 24 Hour Vital Signs Date Time Temp Pulse Resp B/P Pulse Ox O2 Delivery O2 Flow Rate FiO2 10/28/16 08:47 155/88 10/28/16 08:47 97 155/88 10/28/16 08:00 97.0 96 20 155/88 99 Venturi Mask 10/28/16 08:00 6.0 28 10/28/16 08:00 90 10/28/16 07:35 86 20 99 Trach Collar 6.0 10/28/16 07:25 84 18 99 Trach Collar 6.0 28 10/28/16 07:25 Trach Collar 6.0 28 10/28/16 07:25 28 10/28/16 07:25 99 Trach Collar 6.0 10/28/16 04:00 6.0 28 10/28/16 04:00 97.2 86 20 154/90 98 T-piece 10/28/16 03:41 87 10/28/16 01:10 99 Trach Collar 6.0 10/28/16 01:10 Trach Collar 6.0 10/28/16 00:00 6.0 28 10/28/16 00:00 96.6 92 18 150/82 98 Trach Collar 10/28/16 00:00 88 10/27/16 23:40 84 20 99 Trach Collar 6.0 10/27/16 23:35 80 18 99 Trach Collar 6.0 28 10/27/16 23:35 28 10/27/16 20:00 97.5 80 18 138/72 99 T-piece 10/27/16 20:00 6.0 28 10/27/16 19:39 82 10/27/16 19:00 Trach Collar 6.0 28 10/27/16 19:00 99 Trach Collar 6.0 28 10/27/16 17:55 133/69 10/27/16 16:00 97.2 83 18 133/69 99 T-piece 28 10/27/16 16:00 6.0 28 10/27/16 15:44 91 10/27/16 14:56 90 20 99 Trach Collar 6.0 28 10/27/16 14:47 93 22 99 Trach Collar 6.0 28 10/27/16 14:47 28 10/27/16 14:46 99 Trach Collar 6.0 10/27/16 14:46 Trach Collar 6.0 28 10/27/16 12:00 6.0 28 10/27/16 12:00 97.4 90 21 129/65 99 T-piece 10/27/16 12:00 89 Intake and Output 10/27/16 10/28/16 19:00 07:00 Intake Total 1195 ml 1460 ml Output Total 700 ml 2600 ml Balance 495 ml -1140 ml Intake Oral 260 ml IV Total 935 ml 1460 ml Output Urine Total 700 ml 2600 ml Objective Status: awake HEENT: atraumatic, normocephalic, trach in place Lungs: rhonchi Heart: HR/BP stable Abdomen: soft, non-tender Extremities: no C/C/E, edema Laboratory Tests 10/28/16 07:35: White Blood Count 13.8H, Red Blood Count 3.85L, Hemoglobin 9.6L, Hematocrit 31.5L, Mean Corpuscular Volume 82, Mean Corpuscular Hemoglobin 24.8L, Mean Corpuscular Hemoglobin Concent 30.3L, Red Cell Distribution Width 16.2H, Platelet Count 380, Mean Platelet Volume 7.2, Neutrophils (%) (Auto) 70.3, Lymphocytes (%) (Auto) 20.3, Monocytes (%) (Auto) 5.3, Eosinophils (%) (Auto) 3.6H, Basophils (%) (Auto) 0.6, Sodium Level 145, Potassium Level 3.4, Chloride Level 101, Carbon Dioxide Level 31H, Anion Gap 13, Blood Urea Nitrogen 9, Creatinine 0.5L, Estimat Glomerular Filtration Rate > 60, Glucose Level 71L, Calcium Level 9.3, Total Bilirubin 0.2, Aspartate Amino Transf (AST/SGOT) 18, Alanine Aminotransferase (ALT/SGPT) 30, Alkaline Phosphatase 84, Total Protein 7.1, Albumin 3.5, Globulin 3.6, Albumin/Globulin Ratio 0.9L Current Medications Medications (Trade) Dose Ordered Sig/Anusha Route PRN Reason Start Time Stop Time Status Last Admin Dose Admin Acetaminophen (Tylenol) 650 mg Q6H PRN ORAL Mild Pain/Temp > 100.5 10/24/16 05:00 11/23/16 04:59 10/27/16 15:59 Acetaminophen/ Hydrocodone Bitart (Caputa 10/325) 1 ea Q6H PRN ORAL For Pain 4-10 10/27/16 19:00 11/03/16 18:59 Albuterol/ Ipratropium (DuoNeb 0.5-3(2.5)mg/3ml) 3 ml Q8HRT INH 10/24/16 15:00 10/29/16 14:59 10/28/16 07:25 Albuterol/ Ipratropium 3 ml 3 ml Q4H PRN HHN sob 10/24/16 09:00 10/29/16 08:59 Amlodipine Besylate (Norvasc) 10 mg DAILY ORAL 10/24/16 09:00 11/23/16 08:59 10/28/16 08:47 Ascorbic Acid (Vitamin C) 500 mg DAILY ORAL 10/24/16 09:00 11/23/16 08:59 10/28/16 08:42 Aspirin (Ecotrin) 81 mg DAILY ORAL 10/24/16 09:00 11/23/16 08:59 10/28/16 08:42 Dextrose (Dextrose 50%) STAT PRN IV Hypoglycemia 10/24/16 04:45 11/23/16 04:44 10/27/16 05:06 Heparin Sodium (Porcine) (Heparin 5000 units/ml) 5,000 units EVERY 8 HOURS SUBQ 10/24/16 06:00 11/23/16 05:59 10/28/16 06:45 Insulin Aspart (NovoLOG) BEFORE MEALS AND HS SUBQ 10/24/16 06:30 11/23/16 06:29 10/27/16 20:39 Insulin Detemir (Levemir) 26 units BEDTIME SUBQ 10/24/16 21:00 11/23/16 20:59 10/27/16 20:39 Lactulose (Cephulac) 20 gm DAILYPRN PRN ORAL Constipation 10/24/16 09:00 11/23/16 08:59 Losartan Potassium (Cozaar) 50 mg TWICE A DAY ORAL 10/24/16 09:00 11/23/16 08:59 10/28/16 08:47 Meropenem/Sodium Chloride (Merrem/Sodium Chloride) 110 ml @ 220 mls/hr Q8HR IVPB 10/27/16 14:00 11/01/16 13:59 10/28/16 06:46 Metformin HCl (Glucophage) 500 mg TWICE A DAY ORAL 10/24/16 09:00 11/23/16 08:59 10/28/16 08:43 Mirtazapine (Remeron) 7.5 mg BEDTIME ORAL 10/24/16 21:00 11/23/16 20:59 10/27/16 20:33 Multivitamins Therapeutic (Therapeutic Multivitamin) 1 ea DAILY ORAL 10/24/16 09:00 11/23/16 08:59 10/28/16 08:42 Pantoprazole (Protonix) 40 mg DAILY IVP 10/24/16 09:00 11/23/16 08:59 10/28/16 08:41 Sodium Chloride (Sodium Chloride 1000ml bag) 1,000 ml @ 75 mls/hr [id number] IVLG 10/24/16 05:43 11/23/16 05:42 10/28/16 04:33 Sodium Phosphate (Fleet's Sodium Phosl Enema) 133 ml DAILYPRN PRN RECTAL Constipation 10/24/16 09:00 11/23/16 08:59 NOHEMI LOREDO Oct 28, 2016 10:53
[2016-10-28 12:00] VITALS: BP 112/98
--- NOTE | 2016-10-28 12:03 | Diagnostic Imaging Report ---
Indication: DYSPNEA Technique: One view of the chest Comparison: 10/27/2016 Findings: Right perihilar atelectasis versus scarring is unchanged. Left basilar pleural fluid and retrocardiac consolidation, atelectasis, or scarring is unchanged. Tracheostomy remains Impression: Unchanged, over one day, findings as above.
--- NOTE | 2016-10-28 12:59 | Internal Med Progress Note ---
Subjective Date of Service: Oct 28, 2016 Physician Name Brayan Doty Attending Physician Todd Wallace MD Current Medications Medications (Trade) Dose Ordered Sig/Anusha Route PRN Reason Start Time Stop Time Status Last Admin Dose Admin Acetaminophen (Tylenol) 650 mg Q6H PRN ORAL Mild Pain/Temp > 100.5 10/24/16 05:00 11/23/16 04:59 10/27/16 15:59 Acetaminophen/ Hydrocodone Bitart ([place] 10/325) 1 ea Q6H PRN ORAL For Pain 4-10/27/16 19:00 11/03/16 18:59 Albuterol/ Ipratropium (DuoNeb 0.5-3(2.5)mg/3ml) 3 ml Q8HRT INH 10/24/16 15:00 10/29/16 14:59 10/28/16 07:25 Albuterol/ Ipratropium 3 ml 3 ml Q4H PRN HHN sob 10/24/16 09:00 10/29/16 08:59 Amlodipine Besylate (Norvasc) 10 mg DAILY ORAL 10/24/16 09:00 11/23/16 08:59 10/28/16 08:47 Ascorbic Acid (Vitamin C) 500 mg DAILY ORAL 10/24/16 09:00 11/23/16 08:59 10/28/16 08:42 Aspirin (Ecotrin) 81 mg DAILY ORAL 10/24/16 09:00 11/23/16 08:59 10/28/16 08:42 Dextrose (Dextrose 50%) STAT PRN IV Hypoglycemia 10/24/16 04:45 11/23/16 04:44 10/27/16 05:06 Heparin Sodium (Porcine) (Heparin 5000 units/ml) 5,000 units EVERY 8 HOURS SUBQ 10/24/16 06:00 11/23/16 05:59 10/28/16 06:45 Insulin Aspart (NovoLOG) BEFORE MEALS AND HS SUBQ 10/24/16 06:30 11/23/16 06:29 10/28/16 12:16 Insulin Detemir (Levemir) 26 units BEDTIME SUBQ 10/24/16 21:00 11/23/16 20:59 10/27/16 20:39 Lactulose (Cephulac) 20 gm DAILYPRN PRN ORAL Constipation 10/24/16 09:00 11/23/16 08:59 Losartan Potassium (Cozaar) 50 mg TWICE A DAY ORAL 10/24/16 09:00 11/23/16 08:59 10/28/16 08:47 Meropenem/Sodium Chloride (Merrem/Sodium Chloride) 110 ml @ 220 mls/hr Q8HR IVPB 10/27/16 14:00 11/01/16 13:59 10/28/16 06:46 Metformin HCl (Glucophage) 500 mg TWICE A DAY ORAL 10/24/16 09:00 11/23/16 08:59 10/28/16 08:43 Mirtazapine (Remeron) 7.5 mg BEDTIME ORAL 10/24/16 21:00 11/23/16 20:59 10/27/16 20:33 Multivitamins Therapeutic (Therapeutic Multivitamin) 1 ea DAILY ORAL 10/24/16 09:00 11/23/16 08:59 10/28/16 08:42 Pantoprazole (Protonix) 40 mg DAILY IVP 10/24/16 09:00 11/23/16 08:59 10/28/16 08:41 Sodium Chloride (Sodium Chloride 1000ml bag) 1,000 ml @ 75 mls/hr [id number] IVLG 10/24/16 05:43 11/23/16 05:42 10/28/16 04:33 Sodium Phosphate (Fleet's Sodium Phosl Enema) 133 ml DAILYPRN PRN RECTAL Constipation 10/24/16 09:00 11/23/16 08:59 Allergies: Coded Allergies: No Known Allergies (Unverified , 02/06/16) Subjective 61 YO M admitted with respiratory failure and urinary tract infection. ROSE. Cover for Int Med - Dr Wallace. Objective Last Vital Signs Date Time Temp Pulse Resp B/P Pulse Ox O2 Delivery O2 Flow Rate FiO2 10/28/16 08:47 155/88 10/28/16 08:47 97 10/28/16 08:00 97.0 20 99 Venturi Mask 28 10/28/16 08:00 6.0 Laboratory Tests Test 10/28/16 07:35 White Blood Count 13.8 K/UL (4.8-10.8) H Red Blood Count 3.85 M/UL (4.70-6.10) L Hemoglobin 9.6 G/DL (14.2-18.0) L Hematocrit 31.5 % (42.0-52.0) L Mean Corpuscular Volume 82 FL (80-99) Mean Corpuscular Hemoglobin 24.8 PG (27.0-31.0) L Mean Corpuscular Hemoglobin Concent 30.3 G/DL (32.0-36.0) L Red Cell Distribution Width 16.2 % (11.6-14.8) H Platelet Count 380 K/UL (150-450) Mean Platelet Volume 7.2 FL (6.5-10.1) Neutrophils (%) (Auto) 70.3 % (45.0-75.0) Lymphocytes (%) (Auto) 20.3 % (20.0-45.0) Monocytes (%) (Auto) 5.3 % (1.0-10.0) Eosinophils (%) (Auto) 3.6 % (0.0-3.0) H Basophils (%) (Auto) 0.6 % (0.0-2.0) Sodium Level 145 mEQ/L (135-145) Potassium Level 3.4 mEQ/L (3.4-4.9) Chloride Level 101 mEQ/L (98-107) Carbon Dioxide Level 31 mEQ/L (20-30) H Anion Gap 13 (5-15) Blood Urea Nitrogen 9 mg/dL (7-23) Creatinine 0.5 mg/dL (0.7-1.2) L Estimat Glomerular Filtration Rate > 60 mL/min (>60) Glucose Level 71 mg/dL (74-106) L Calcium Level 9.3 mg/dL (8.6-10.2) Total Bilirubin 0.2 mg/dL (0.0-1.2) Aspartate Amino Transf (AST/SGOT) 18 U/L (5-40) Alanine Aminotransferase (ALT/SGPT) 30 U/L (3-41) Alkaline Phosphatase 84 U/L (40-129) Total Protein 7.1 g/dL (6.6-8.7) Albumin 3.5 g/dL (3.5-5.2) Globulin 3.6 g/dL Albumin/Globulin Ratio 0.9 (1.0-2.7) L Intake and Output 10/27/16 10/28/16 19:00 07:00 Intake Total 1195 ml 1460 ml Output Total 700 ml 2600 ml Balance 495 ml -1140 ml Intake Oral 260 ml IV Total 935 ml 1460 ml Output Urine Total 700 ml 2600 ml Objective General Appearance: lethargic, thin EENT: normal ENT inspection Neck: non-tender, normal alignment, supple, other - Trach collar Cardiovascular: normal peripheral pulses, normal rate, regular rhythm, no gallop/murmur, no JVD Respiratory/Chest: respiratory distress, crackles/rales, rhonchi - bilaterally , expiratory wheezing Abdomen: normal bowel sounds, non tender, soft, no organomegaly, no mass Skin: normal pigmentation, warm/dry Assessment/Plan Problem List: (1) Lactic acid acidosis (2) Leukocytosis (3) Nausea & vomiting (4) Respiratory failure Assessment & Plan: Trach collar. See pulmonary note. (5) SOB (shortness of breath) (6) Cerebral vascular disease (7) HTN (hypertension) Assessment & Plan: Continue norvasc and cozar. (8) COPD (chronic obstructive pulmonary disease) Assessment & Plan: See pulmonary note. Cont duoneb. (9) Diabetes mellitus type II, uncontrolled Assessment & Plan: Cont levemir, novolog sliding scale and metformin. (10) Hypercholesteremia (11) Sepsis (12) UTI (urinary tract infection) Assessment & Plan: Proteus mirabilis. See ID note-Cont meropenem. (13) Dysphagia Assessment & Plan: See speech therapy note Status: not improved Assessment/Plan Discharge planning BRAYAN DOTY Oct 28, 2016 12:59
--- NOTE | 2016-10-28 14:48 | Diagnostic Imaging Report ---
Indications: DYSPHAGIA Technique: Patient ingested multiple substances under the supervision of speech pathology. Video fluoroscopic recording performed. Total fluoroscopy time 297 seconds. Total dose area product [id number] mGycm2 Comparison: none Findings: There is considerable delayed initiation of dictation. There is early pooling in vallecula and puriform sinuses. Ingestion of thin, nectar thick, honey thick barium demonstrates penetration but no patrica aspiration. Penetration is seen with ingestion of barium pur?e. There is residual pooling after ingestion of pur?e. Impression: Positive for penetration of honey thick, nectar thick, and thin liquid barium. Negative for aspiration Please refer to speech pathology report for more detailed analysis
[2016-10-28 16:37] VITALS: BP 106/62
[2016-10-28] MEDS ORDERED: NS Irrig 1000ml ONE (18:16)
--- NOTE | 2016-10-28 19:43 | Infectious Diseases Prog Note ---
Assessment/Plan Assessment/Plan A: The patient is a 61-year-old Sepsis, SP UTI UCx : ESBL P mirabilis, GNR Pyuria Doubt Pna : at this time SCx: MDR - PSA ( colonizer ) C- xray : Borderline cardiomegaly with suspected mild interstitial edema and trace left pleural effusion. Respiratory distress, SP Leukocytosis mild Wnd Cx: polymicrob. growth ( Colonizer ) Hep A/B/C: Neg US: Cholelithiasis. Negative for dilated ducts ALOC COPD DM Fatty liver SP tracheostomy status post G-tube placement hx of CVA and left side hemiplegia P: cont pt on Merrem d # 2 / 14 ( / Zosyn d# 3 ) Monitor CBC Monitor BMP Monitor LFT Monitor Cultures ( Bl ) Subjective Constitutional: Denies: anorexia, chills, drenching sweats, fatigue, fever, no symptoms, other Allergies: Coded Allergies: No Known Allergies (Unverified , 02/06/16) Objective Vital Signs Last 24 Hour Vital Signs Date Time Temp Pulse Resp B/P Pulse Ox O2 Delivery O2 Flow Rate FiO2 10/28/16 19:00 Trach Collar 6.0 28 10/28/16 19:00 98 Trach Collar 6.0 28 10/28/16 18:10 106/62 10/28/16 16:37 97.9 95 19 106/62 98 Mechanical Ventilator 10/28/16 16:20 95 10/28/16 16:00 6.0 28 10/28/16 14:58 88 20 99 Trach Collar 6.0 10/28/16 14:48 28 10/28/16 14:48 86 18 99 Trach Collar 6.0 28 10/28/16 13:29 Trach Collar 6.0 28 10/28/16 13:29 99 Trach Collar 6.0 28 10/28/16 12:00 6.0 28 10/28/16 12:00 86 10/28/16 12:00 97.5 90 20 112/98 100 Venturi Mask 10/28/16 08:47 155/88 10/28/16 08:47 97 155/88 10/28/16 08:00 97.0 96 20 155/88 99 Venturi Mask 28 10/28/16 08:00 6.0 28 10/28/16 08:00 90 10/28/16 07:35 86 20 99 Trach Collar 6.0 28 10/28/16 07:25 84 18 99 Trach Collar 6.0 10/28/16 07:25 Trach Collar 6.0 10/28/16 07:25 28 10/28/16 07:25 99 Trach Collar 6.0 10/28/16 04:00 6.0 28 10/28/16 04:00 97.2 86 20 154/90 98 T-piece 10/28/16 03:41 87 10/28/16 01:10 99 Trach Collar 6.0 10/28/16 01:10 Trach Collar 6.0 10/28/16 00:00 6.0 10/28/16 00:00 96.6 92 18 150/82 98 Trach Collar 10/28/16 00:00 88 10/27/16 23:40 84 20 99 Trach Collar 6.0 10/27/16 23:35 80 18 99 Trach Collar 6.0 10/27/16 23:35 28 10/27/16 20:00 97.5 80 18 138/72 99 T-piece 10/27/16 20:00 6.0 28 Height (Feet): 5 Height (Inches): 8.00 Weight (Pounds): 144 HEENT: atraumatic Respiratory/Chest: normal breath sounds Cardiovascular: regular rhythm Abdomen: no organomegaly Laboratory Tests Test 10/28/16 07:35 White Blood Count 13.8 K/UL (4.8-10.8) H Red Blood Count 3.85 M/UL (4.70-6.10) L Hemoglobin 9.6 G/DL (14.2-18.0) L Hematocrit 31.5 % (42.0-52.0) L Mean Corpuscular Volume 82 FL (80-99) Mean Corpuscular Hemoglobin 24.8 PG (27.0-31.0) L Mean Corpuscular Hemoglobin Concent 30.3 G/DL (32.0-36.0) L Red Cell Distribution Width 16.2 % (11.6-14.8) H Platelet Count 380 K/UL (150-450) Mean Platelet Volume 7.2 FL (6.5-10.1) Neutrophils (%) (Auto) 70.3 % (45.0-75.0) Lymphocytes (%) (Auto) 20.3 % (20.0-45.0) Monocytes (%) (Auto) 5.3 % (1.0-10.0) Eosinophils (%) (Auto) 3.6 % (0.0-3.0) H Basophils (%) (Auto) 0.6 % (0.0-2.0) Sodium Level 145 mEQ/L (135-145) Potassium Level 3.4 mEQ/L (3.4-4.9) Chloride Level 101 mEQ/L (98-107) Carbon Dioxide Level 31 mEQ/L (20-30) H Anion Gap 13 (5-15) Blood Urea Nitrogen 9 mg/dL (7-23) Creatinine 0.5 mg/dL (0.7-1.2) L Estimat Glomerular Filtration Rate > 60 mL/min (>60) Glucose Level 71 mg/dL (74-106) L Calcium Level 9.3 mg/dL (8.6-10.2) Total Bilirubin 0.2 mg/dL (0.0-1.2) Aspartate Amino Transf (AST/SGOT) 18 U/L (5-40) Alanine Aminotransferase (ALT/SGPT) 30 U/L (3-41) Alkaline Phosphatase 84 U/L (40-129) Total Protein 7.1 g/dL (6.6-8.7) Albumin 3.5 g/dL (3.5-5.2) Globulin 3.6 g/dL Albumin/Globulin Ratio 0.9 (1.0-2.7) L Current Medications Medications (Trade) Dose Ordered Sig/Aunsha Route PRN Reason Start Time Stop Time Status Last Admin Dose Admin Acetaminophen (Tylenol) 650 mg Q6H PRN ORAL Mild Pain/Temp > 100.5 10/24/16 05:00 11/23/16 04:59 10/27/16 15:59 Acetaminophen/ Hydrocodone Bitart ([place] 10/325) 1 ea Q6H PRN ORAL For Pain -10/27/16 19:00 11/03/16 18:59 Albuterol/ Ipratropium (DuoNeb 0.5-3(2.5)mg/3ml) 3 ml Q8HRT INH 10/24/16 15:00 10/29/16 14:59 10/28/16 14:48 Albuterol/ Ipratropium 3 ml 3 ml Q4H PRN HHN sob 10/24/16 09:00 10/29/16 08:59 Amlodipine Besylate (Norvasc) 10 mg DAILY ORAL 10/24/16 09:00 11/23/16 08:59 10/28/16 08:47 Ascorbic Acid (Vitamin C) 500 mg DAILY ORAL 10/24/16 09:00 11/23/16 08:59 10/28/16 08:42 Aspirin (Ecotrin) 81 mg DAILY ORAL 10/24/16 09:00 11/23/16 08:59 10/28/16 08:42 Dextrose (Dextrose 50%) STAT PRN IV Hypoglycemia 10/24/16 04:45 11/23/16 04:44 10/27/16 05:06 Heparin Sodium (Porcine) (Heparin 5000 units/ml) 5,000 units EVERY 8 HOURS SUBQ 10/24/16 06:00 11/23/16 05:59 10/28/16 14:13 Insulin Aspart (NovoLOG) BEFORE MEALS AND HS SUBQ 10/24/16 06:30 11/23/16 06:29 10/28/16 15:51 Insulin Detemir (Levemir) 26 units BEDTIME SUBQ 10/24/16 21:00 11/23/16 20:59 10/27/16 20:39 Lactulose (Cephulac) 20 gm DAILYPRN PRN ORAL Constipation 10/24/16 09:00 11/23/16 08:59 Losartan Potassium (Cozaar) 50 mg TWICE A DAY ORAL 10/24/16 09:00 11/23/16 08:59 10/28/16 18:10 Meropenem/Sodium Chloride (Merrem/Sodium Chloride) 110 ml @ 220 mls/hr Q8HR IVPB 10/27/16 14:00 11/01/16 13:59 10/28/16 14:03 Metformin HCl (Glucophage) 500 mg TWICE A DAY ORAL 10/24/16 09:00 11/23/16 08:59 10/28/16 18:10 Mirtazapine (Remeron) 7.5 mg BEDTIME ORAL 10/24/16 21:00 11/23/16 20:59 10/27/16 20:33 Multivitamins Therapeutic (Therapeutic Multivitamin) 1 ea DAILY ORAL 10/24/16 09:00 11/23/16 08:59 10/28/16 08:42 Pantoprazole (Protonix) 40 mg DAILY IVP 10/24/16 09:00 11/23/16 08:59 10/28/16 08:41 Sodium Chloride (Sodium Chloride 1000ml bag) 1,000 ml @ 75 mls/hr [id number] IVLG 10/24/16 05:43 11/23/16 05:42 10/28/16 15:52 Sodium Phosphate (Fleet's Sodium Phosl Enema) 133 ml DAILYPRN PRN RECTAL Constipation 10/24/16 09:00 11/23/16 08:59 RASHEED HI M.D. Oct 28, 2016 19:43
[2016-10-28 20:00] VITALS: BP 125/71
[2016-10-28] MEDS: Levemir Flexpen SUBQ SCH (20:29)
[2016-10-29 00:48] VITALS: BP 134/75
[2016-10-29 04:00] VITALS: BP 151/88
[2016-10-29] MEDS: NovoLOG Insulin Flexpen SUBQ SCH ×2 (06:30→11:47)
[2016-10-29] MEDS: Meropenem 1 GM in NS 110 ML IVPB SCH ×2 (06:35→14:00)
[2016-10-29] MEDS: Heparin 5000 units/ml inj SUBQ SCH ×2 (06:36→14:00)
[2016-10-29] MEDS: DuoNeb 0.5-3(2.5)mg/3ml neb INH SCH (07:47)
[2016-10-29 08:00] VITALS: BP 139/76
[2016-10-29 08:48] LABS: BASOPHILS % (AUTO) 0.8 % (0.0-2.0); EOSINOPHILS % (AUTO) 3.5 % (0.0-3.0); LYMPHOCYTES % (AUTO) 27.6 % (20.0-45.0); MEAN CORPUSCULAR HEMOGLOBIN 25.3 PG (27.0-31.0); MEAN CORPUSCULAR VOLUME 81 FL (80-99); MEAN PLATELET VOLUME 7.5 FL (6.5-10.1); MONOCYTES % (AUTO) 5.6 % (1.0-10.0); NEUTROPHILS % (AUTO) 62.4 % (45.0-75.0); PLATELET COUNT 377 K/UL (150-450); RED BLOOD COUNT 4.29 M/UL (4.70-6.10); RED CELL DISTRIBUTION WIDTH 16.5 % (11.6-14.8); WHITE BLOOD COUNT 10.6 K/UL (4.8-10.8)
[2016-10-29 09:13] LABS: ALANINE AMINOTRANSFERASE 30 U/L (3-41); ALBUMIN/GLOBULIN RATIO 0.8 (1.0-2.7); ANION GAP 16 (5-15); ASPARTATE AMINO TRANSFERASE 18 U/L (5-40); CALCIUM 9.4 mg/dL (8.6-10.2); CARBON DIOXIDE 28 mEQ/L (20-30); CHLORIDE 99 mEQ/L (98-107); CREATININE 0.5 mg/dL (0.7-1.2); GLOMERULAR FILTRATION RATE > 60 mL/min (>60); HEMOLYSIS 1; MAGNESIUM 1.6 mg/dL (1.7-2.5); PHOSPHORUS 2.8 mg/dL (2.5-4.8); POTASSIUM 3.9 mEQ/L (3.4-4.9); SODIUM 143 mEQ/L (135-145); TOTAL PROTEIN 7.2 g/dL (6.6-8.7)
[2016-10-29] MEDS: Pantoprazole Inj IVP SCH (09:19)
[2016-10-29] MEDS: Aspirin EC 81mg tab ORAL SCH (09:20)
[2016-10-29] MEDS: metFORMIN 500mg tab ORAL SCH (09:20)
[2016-10-29] MEDS: Ascorbic Acid 500mg tab ORAL SCH (09:20)
[2016-10-29] MEDS: Multivitamin w/Minerals tab ORAL SCH (09:20)
[2016-10-29] MEDS: Losartan 50mg tab ORAL SCH (09:21)
--- NOTE | 2016-10-29 11:11 | Infectious Diseases Prog Note ---
Assessment/Plan Assessment/Plan A: The patient is a 61-year-old Sepsis, SP UTI UCx : ESBL P mirabilis, GNR Pyuria Doubt Pna : at this time SCx: MDR - PSA x 2 ( colonizer ) C- xray : Borderline cardiomegaly with suspected mild interstitial edema and trace left pleural effusion. Respiratory distress, SP Leukocytosis improved Wnd Cx: polymicrob. growth ( Colonizer ) Hep A/B/C: Neg US: Cholelithiasis. Negative for dilated ducts ALOC COPD DM Fatty liver SP tracheostomy status post G-tube placement hx of CVA and left side hemiplegia P: cont pt on Merrem d # 3 / ( / Zosyn d# 3 ) Monitor CBC Monitor BMP Monitor LFT Monitor Cultures ( Bl ) Subjective Constitutional: Denies: anorexia, chills, drenching sweats, fatigue, fever, no symptoms, other Allergies: Coded Allergies: No Known Allergies (Unverified , 02/06/16) Objective Vital Signs Last 24 Hour Vital Signs Date Time Temp Pulse Resp B/P Pulse Ox O2 Delivery O2 Flow Rate FiO2 10/29/16 09:21 110/61 10/29/16 09:21 90 110/61 10/29/16 08:00 98.1 103 20 139/76 97 T-piece 10/29/16 08:00 89 10/29/16 08:00 6.0 28 10/29/16 07:49 89 20 100 Trach Collar 6.0 28 10/29/16 07:40 28 10/29/16 07:39 90 20 100 Trach Collar 6.0 10/29/16 07:37 100 Trach Collar 6.0 28 10/29/16 07:05 Trach Collar 6.0 28 10/29/16 04:00 98.2 91 20 151/88 97 T-piece 10/29/16 04:00 6.0 28 10/29/16 04:00 98.2 91 20 151/88 97 T-piece 10/29/16 03:48 90 10/29/16 01:18 99 Trach Collar 6.0 28 10/29/16 01:18 Trach Collar 6.0 28 10/29/16 00:48 97.9 86 18 134/75 100 T-piece 10/29/16 00:00 6.0 28 10/28/16 23:44 89 10/28/16 23:08 85 18 99 Trach Collar 6.0 28 10/28/16 23:00 82 18 98 Trach Collar 6.0 28 10/28/16 23:00 28 10/28/16 20:00 6.0 28 10/28/16 20:00 96.3 90 18 125/71 100 Trach Collar 10/28/16 19:44 92 10/28/16 19:00 Trach Collar 6.0 28 10/28/16 19:00 98 Trach Collar 6.0 28 10/28/16 18:10 106/62 10/28/16 16:37 97.9 95 19 106/62 98 Mechanical Ventilator 10/28/16 16:20 95 10/28/16 16:00 6.0 28 10/28/16 14:58 88 20 99 Trach Collar 6.0 28 10/28/16 14:48 28 10/28/16 14:48 86 18 99 Trach Collar 6.0 28 10/28/16 13:29 Trach Collar 6.0 28 10/28/16 13:29 99 Trach Collar 6.0 28 10/28/16 12:00 6.0 28 10/28/16 12:00 86 10/28/16 12:00 97.5 90 20 112/98 100 Venturi Mask 28 Height (Feet): 5 Height (Inches): 8.00 Weight (Pounds): 144 HEENT: atraumatic Respiratory/Chest: no respiratory distress Cardiovascular: normal peripheral pulses Abdomen: soft, non tender Laboratory Tests Test 10/29/16 08:00 White Blood Count 10.6 K/UL (4.8-10.8) Red Blood Count 4.29 M/UL (4.70-6.10) L Hemoglobin 10.8 G/DL (14.2-18.0) L Hematocrit 34.9 % (42.0-52.0) L Mean Corpuscular Volume 81 FL (80-99) Mean Corpuscular Hemoglobin 25.3 PG (27.0-31.0) L Mean Corpuscular Hemoglobin Concent 31.0 G/DL (32.0-36.0) L Red Cell Distribution Width 16.5 % (11.6-14.8) H Platelet Count 377 K/UL (150-450) Mean Platelet Volume 7.5 FL (6.5-10.1) Neutrophils (%) (Auto) 62.4 % (45.0-75.0) Lymphocytes (%) (Auto) 27.6 % (20.0-45.0) Monocytes (%) (Auto) 5.6 % (1.0-10.0) Eosinophils (%) (Auto) 3.5 % (0.0-3.0) H Basophils (%) (Auto) 0.8 % (0.0-2.0) Sodium Level 143 mEQ/L (135-145) Potassium Level 3.9 mEQ/L (3.4-4.9) Chloride Level 99 mEQ/L (98-107) Carbon Dioxide Level 28 mEQ/L (20-30) Anion Gap 16 (5-15) H Blood Urea Nitrogen 9 mg/dL (7-23) Creatinine 0.5 mg/dL (0.7-1.2) L Estimat Glomerular Filtration Rate > 60 mL/min (>60) Glucose Level 119 mg/dL (74-106) H Calcium Level 9.4 mg/dL (8.6-10.2) Phosphorus Level 2.8 mg/dL (2.5-4.8) Magnesium Level 1.6 mg/dL (1.7-2.5) L Total Bilirubin 0.2 mg/dL (0.0-1.2) Aspartate Amino Transf (AST/SGOT) 18 U/L (5-40) Alanine Aminotransferase (ALT/SGPT) 30 U/L (3-41) Alkaline Phosphatase 88 U/L (40-129) Total Protein 7.2 g/dL (6.6-8.7) Albumin 3.4 g/dL (3.5-5.2) L Globulin 3.8 g/dL Albumin/Globulin Ratio 0.8 (1.0-2.7) L Current Medications Medications (Trade) Dose Ordered Sig/Anusha Route PRN Reason Start Time Stop Time Status Last Admin Dose Admin Acetaminophen (Tylenol) 650 mg Q6H PRN ORAL Mild Pain/Temp > 100.5 10/24/16 05:00 11/23/16 04:59 10/27/16 15:59 Acetaminophen/ Hydrocodone Bitart ([place] 10/325) 1 ea Q6H PRN ORAL For Pain 4-10 10/27/16 19:00 4/11/17 18:59 10/29/16 09:20 Albuterol/ Ipratropium 3 ml 3 ml Q8HRT INH 10/24/16 15:00 10/29/16 14:59 10/29/16 07:47 Amlodipine Besylate (Norvasc) 10 mg DAILY ORAL 10/24/16 09:00 11/23/16 08:59 10/29/16 09:21 Ascorbic Acid (Vitamin C) 500 mg DAILY ORAL 10/24/16 09:00 11/23/16 08:59 10/29/16 09:20 Aspirin (Ecotrin) 81 mg DAILY ORAL 10/24/16 09:00 11/23/16 08:59 10/29/16 09:20 Dextrose (Dextrose 50%) STAT PRN IV Hypoglycemia 10/24/16 04:45 11/23/16 04:44 10/27/16 05:06 Heparin Sodium (Porcine) (Heparin 5000 units/ml) 5,000 units EVERY 8 HOURS SUBQ 10/24/16 06:00 11/23/16 05:59 10/29/16 06:36 Insulin Aspart (NovoLOG) BEFORE MEALS AND HS SUBQ 10/24/16 06:30 11/23/16 06:29 10/28/16 20:30 Insulin Detemir (Levemir) 26 units BEDTIME SUBQ 10/24/16 21:00 11/23/16 20:59 10/28/16 20:29 Lactulose (Cephulac) 20 gm DAILYPRN PRN ORAL Constipation 10/24/16 09:00 11/23/16 08:59 Losartan Potassium (Cozaar) 50 mg TWICE A DAY ORAL 10/24/16 09:00 11/23/16 08:59 10/29/16 09:21 Meropenem/Sodium Chloride (Merrem/Sodium Chloride) 110 ml @ 220 mls/hr Q8HR IVPB 10/27/16 14:00 11/01/16 13:59 10/29/16 06:35 Metformin HCl (Glucophage) 500 mg TWICE A DAY ORAL 10/24/16 09:00 11/23/16 08:59 10/29/16 09:20 Mirtazapine (Remeron) 7.5 mg BEDTIME ORAL 10/24/16 21:00 11/23/16 20:59 10/28/16 20:21 Multivitamins Therapeutic (Therapeutic Multivitamin) 1 ea DAILY ORAL 10/24/16 09:00 11/23/16 08:59 10/29/16 09:20 Pantoprazole (Protonix) 40 mg DAILY IVP 10/24/16 09:00 11/23/16 08:59 10/29/16 09:19 Sodium Chloride (Sodium Chloride 1000ml bag) 1,000 ml @ 75 mls/hr [id number] IVLG 10/24/16 05:43 11/23/16 05:42 10/29/16 03:50 Sodium Phosphate (Fleet's Sodium Phosl Enema) 133 ml DAILYPRN PRN RECTAL Constipation 10/24/16 09:00 11/23/16 08:59 RASHEED HI M.D. Oct 29, 2016 11:11
[2016-10-29] MEDS ORDERED: MEROPENEM1 GM IV (11:42)
--- NOTE | 2016-10-29 11:52 | Pulmonology Progress Note ---
Assessment/Plan Problems: (1) Respiratory failure (2) Sepsis (3) COPD (chronic obstructive pulmonary disease) (4) Diabetes mellitus type II, uncontrolled Respiratory: monitor respiratory rate, CXR Cardiac: continue pressors, continue to monitor HR/BP Renal: F/U I&O, keep IV fluid Infectious Disease: check cultures Gastrointestinal: hold feedings Endocrine: monitor blood sugar, continue sliding scale insulin Hematologic: monitor H/H, transfuse if hgb<8.5 Neurologic: PRN Ativan, PRN Morphine, keep patient comfortable Affect: PRN ativan Notes Reviewed: cardio, renal Discussed with: nurses, consultants, case planner Subjective ROS Limited/Unobtainable: No HEENT: Repors: no symptoms Allergies: Coded Allergies: No Known Allergies (Unverified , 02/06/16) Objective Last 24 Hour Vital Signs Date Time Temp Pulse Resp B/P Pulse Ox O2 Delivery O2 Flow Rate FiO2 10/29/16 09:21 110/61 10/29/16 09:21 90 110/61 10/29/16 08:00 98.1 103 20 139/76 97 T-piece 10/29/16 08:00 89 10/29/16 08:00 6.0 28 10/29/16 07:49 89 20 100 Trach Collar 6.0 10/29/16 07:40 28 10/29/16 07:39 90 20 100 Trach Collar 6.0 10/29/16 07:37 100 Trach Collar 6.0 28 10/29/16 07:05 Trach Collar 6.0 28 10/29/16 04:00 98.2 91 20 151/88 97 T-piece 10/29/16 04:00 6.0 28 10/29/16 04:00 98.2 91 20 151/88 97 T-piece 10/29/16 03:48 90 10/29/16 01:18 99 Trach Collar 6.0 28 10/29/16 01:18 Trach Collar 6.0 10/29/16 00:48 97.9 86 18 134/75 100 T-piece 10/29/16 00:00 6.0 28 10/28/16 23:44 89 10/28/16 23:08 85 18 99 Trach Collar 6.0 28 10/28/16 23:00 82 18 98 Trach Collar 6.0 28 10/28/16 23:00 28 10/28/16 20:00 6.0 28 10/28/16 20:00 96.3 90 18 125/71 100 Trach Collar 10/28/16 19:44 92 10/28/16 19:00 Trach Collar 6.0 28 10/28/16 19:00 98 Trach Collar 6.0 28 10/28/16 18:10 106/62 10/28/16 16:37 97.9 95 19 106/62 98 Mechanical Ventilator 10/28/16 16:20 95 10/28/16 16:00 6.0 28 10/28/16 14:58 88 20 99 Trach Collar 6.0 28 10/28/16 14:48 28 10/28/16 14:48 86 18 99 Trach Collar 6.0 28 10/28/16 13:29 Trach Collar 6.0 28 10/28/16 13:29 99 Trach Collar 6.0 28 10/28/16 12:00 6.0 28 10/28/16 12:00 86 10/28/16 12:00 97.5 90 20 112/98 100 Venturi Mask 28 Intake and Output 10/28/16 10/29/16 18:59 06:59 Intake Total 1735 ml 1242 ml Output Total 1500 ml 3200 ml Balance 235 ml -1958 ml Intake Oral 320 ml 270 ml IV Total 1415 ml 972 ml Output Urine Total 1500 ml 3200 ml Objective Status: awake HEENT: atraumatic, normocephalic, trach in place Lungs: rhonchi Heart: HR/BP stable Abdomen: soft, non-tender Extremities: no C/C/E, edema Laboratory Tests 10/29/16 08:00: White Blood Count 10.6, Red Blood Count 4.29L, Hemoglobin 10.8L, Hematocrit 34.9L, Mean Corpuscular Volume 81, Mean Corpuscular Hemoglobin 25.3L, Mean Corpuscular Hemoglobin Concent 31.0L, Red Cell Distribution Width 16.5H, Platelet Count 377, Mean Platelet Volume 7.5, Neutrophils (%) (Auto) 62.4, Lymphocytes (%) (Auto) 27.6, Monocytes (%) (Auto) 5.6, Eosinophils (%) (Auto) 3.5H, Basophils (%) (Auto) 0.8, Sodium Level 143, Potassium Level 3.9, Chloride Level 99, Carbon Dioxide Level 28, Anion Gap 16H, Blood Urea Nitrogen 9, Creatinine 0.5L, Estimat Glomerular Filtration Rate > 60, Glucose Level 119H, Calcium Level 9.4, Phosphorus Level 2.8, Magnesium Level 1.6L, Total Bilirubin 0.2, Aspartate Amino Transf (AST/SGOT) 18, Alanine Aminotransferase (ALT/SGPT) 30, Alkaline Phosphatase 88, Total Protein 7.2, Albumin 3.4L, Globulin 3.8, Albumin/Globulin Ratio 0.8L Current Medications Medications (Trade) Dose Ordered Sig/Anusha Route PRN Reason Start Time Stop Time Status Last Admin Dose Admin Acetaminophen (Tylenol) 650 mg Q6H PRN ORAL Mild Pain/Temp > 100.5 10/24/16 05:00 11/23/16 04:59 10/27/16 15:59 Acetaminophen/ Hydrocodone Bitart ([place] 10/325) 1 ea Q6H PRN ORAL For Pain 4-10 10/27/16 19:00 11/03/16 18:59 10/29/16 09:20 Albuterol/ Ipratropium 3 ml 3 ml Q8HRT INH 10/24/16 15:00 10/29/16 14:59 10/29/16 07:47 Amlodipine Besylate (Norvasc) 10 mg DAILY ORAL 10/24/16 09:00 11/23/16 08:59 10/29/16 09:21 Ascorbic Acid (Vitamin C) 500 mg DAILY ORAL 10/24/16 09:00 11/23/16 08:59 10/29/16 09:20 Aspirin (Ecotrin) 81 mg DAILY ORAL 10/24/16 09:00 11/23/16 08:59 10/29/16 09:20 Dextrose (Dextrose 50%) STAT PRN IV Hypoglycemia 10/24/16 04:45 11/23/16 04:44 10/27/16 05:06 Heparin Sodium (Porcine) (Heparin 5000 units/ml) 5,000 units EVERY 8 HOURS SUBQ 10/24/16 06:00 11/23/16 05:59 10/29/16 06:36 Insulin Aspart (NovoLOG) BEFORE MEALS AND HS SUBQ 10/24/16 06:30 11/23/16 06:29 10/28/16 20:30 Insulin Detemir (Levemir) 26 units BEDTIME SUBQ 10/24/16 21:00 11/23/16 20:59 10/28/16 20:29 Lactulose (Cephulac) 20 gm DAILYPRN PRN ORAL Constipation 10/24/16 09:00 11/23/16 08:59 Losartan Potassium (Cozaar) 50 mg TWICE A DAY ORAL 10/24/16 09:00 11/23/16 08:59 10/29/16 09:21 Meropenem/Sodium Chloride (Merrem/Sodium Chloride) 110 ml @ 220 mls/hr Q8HR IVPB 10/27/16 14:00 11/01/16 13:59 10/29/16 06:35 Metformin HCl (Glucophage) 500 mg TWICE A DAY ORAL 10/24/16 09:00 11/23/16 08:59 10/29/16 09:20 Mirtazapine (Remeron) 7.5 mg BEDTIME ORAL 10/24/16 21:00 11/23/16 20:59 10/28/16 20:21 Multivitamins Therapeutic (Therapeutic Multivitamin) 1 ea DAILY ORAL 10/24/16 09:00 11/23/16 08:59 10/29/16 09:20 Pantoprazole (Protonix) 40 mg DAILY IVP 10/24/16 09:00 11/23/16 08:59 10/29/16 09:19 Sodium Chloride (Sodium Chloride 1000ml bag) 1,000 ml @ 75 mls/hr [id number] IVLG 10/24/16 05:43 11/23/16 05:42 10/29/16 03:50 Sodium Phosphate (Fleet's Sodium Phosl Enema) 133 ml DAILYPRN PRN RECTAL Constipation 10/24/16 09:00 11/23/16 08:59 NOHEMI LOREDO Oct 29, 2016 11:52
[2016-10-29 12:00] VITALS: BP 129/71
[2016-10-29] MEDS ORDERED: NS 275ml ONE (16:09)
[2016-10-29] MEDS ORDERED: Tubing IV Secondary IV ONE (16:09)
--- NOTE | 2016-10-29 18:28 | Internal Med Progress Note ---
Subjective Date of Service: Oct 29, 2016 Physician Name Brayan Doty Attending Physician Todd Wallace MD Allergies: Coded Allergies: No Known Allergies (Unverified , 02/06/16) ROS Limited/Unobtainable: Yes Subjective 61 YO M admitted with respiratory failure and urinary tract infection. [facility]. Await discharge to [facility] today. Cover for Int Med - Dr Wallace. Objective Last Vital Signs Date Time Temp Pulse Resp B/P Pulse Ox O2 Delivery O2 Flow Rate FiO2 10/29/16 16:00 96 10/29/16 16:00 6.0 28 10/29/16 13:31 100 Trach Collar 10/29/16 12:00 98.4 20 129/71 Laboratory Tests Test 10/29/16 08:00 White Blood Count 10.6 K/UL (4.8-10.8) Red Blood Count 4.29 M/UL (4.70-6.10) L Hemoglobin 10.8 G/DL (14.2-18.0) L Hematocrit 34.9 % (42.0-52.0) L Mean Corpuscular Volume 81 FL (80-99) Mean Corpuscular Hemoglobin 25.3 PG (27.0-31.0) L Mean Corpuscular Hemoglobin Concent 31.0 G/DL (32.0-36.0) L Red Cell Distribution Width 16.5 % (11.6-14.8) H Platelet Count 377 K/UL (150-450) Mean Platelet Volume 7.5 FL (6.5-10.1) Neutrophils (%) (Auto) 62.4 % (45.0-75.0) Lymphocytes (%) (Auto) 27.6 % (20.0-45.0) Monocytes (%) (Auto) 5.6 % (1.0-10.0) Eosinophils (%) (Auto) 3.5 % (0.0-3.0) H Basophils (%) (Auto) 0.8 % (0.0-2.0) Sodium Level 143 mEQ/L (135-145) Potassium Level 3.9 mEQ/L (3.4-4.9) Chloride Level 99 mEQ/L (98-107) Carbon Dioxide Level 28 mEQ/L (20-30) Anion Gap 16 (5-15) H Blood Urea Nitrogen 9 mg/dL (7-23) Creatinine 0.5 mg/dL (0.7-1.2) L Estimat Glomerular Filtration Rate > 60 mL/min (>60) Glucose Level 119 mg/dL (74-106) H Calcium Level 9.4 mg/dL (8.6-10.2) Phosphorus Level 2.8 mg/dL (2.5-4.8) Magnesium Level 1.6 mg/dL (1.7-2.5) L Total Bilirubin 0.2 mg/dL (0.0-1.2) Aspartate Amino Transf (AST/SGOT) 18 U/L (5-40) Alanine Aminotransferase (ALT/SGPT) 30 U/L (3-41) Alkaline Phosphatase 88 U/L (40-129) Total Protein 7.2 g/dL (6.6-8.7) Albumin 3.4 g/dL (3.5-5.2) L Globulin 3.8 g/dL Albumin/Globulin Ratio 0.8 (1.0-2.7) L Intake and Output 10/28/16 10/29/16 19:00 07:00 Intake Total 1660 ml 1352 ml Output Total 1500 ml 3200 ml Balance 160 ml -1848 ml Intake Oral 320 ml 270 ml IV Total 1340 ml 1082 ml Output Urine Total 1500 ml 3200 ml Objective General Appearance: lethargic, thin EENT: normal ENT inspection Neck: non-tender, normal alignment, supple, other - Trach collar Cardiovascular: normal peripheral pulses, normal rate, regular rhythm, no gallop/murmur, no JVD Respiratory/Chest: respiratory distress, crackles/rales, rhonchi - bilaterally , expiratory wheezing Abdomen: normal bowel sounds, non tender, soft, no organomegaly, no mass Skin: normal pigmentation, warm/dry Assessment/Plan Problem List: (1) Lactic acid acidosis (2) Leukocytosis (3) Nausea & vomiting (4) Respiratory failure Assessment & Plan: Trach collar. See pulmonary note. (5) SOB (shortness of breath) (6) Cerebral vascular disease (7) HTN (hypertension) Assessment & Plan: Continue norvasc and cozar. (8) COPD (chronic obstructive pulmonary disease) Assessment & Plan: See pulmonary note. Cont duoneb. (9) Diabetes mellitus type II, uncontrolled Assessment & Plan: Cont levemir, novolog sliding scale and metformin. (10) Hypercholesteremia (11) Sepsis (12) UTI (urinary tract infection) Assessment & Plan: Proteus mirabilis. See ID note-Cont meropenem. (13) Dysphagia Assessment & Plan: See speech therapy note Assessment/Plan Discharge to [facility] shelter facility today BRAAYN DOTY Oct 29, 2016 18:28
--- NOTE | 2016-10-30 14:42 | Discharge Summary ---
Discharge Summary Hospital Course Date of Admission Oct 23, 2016 at 23:28 Date of Discharge Oct 29, 2016 at 16:10 Admitting Diagnosis Sepsis, UTI HPI Francisca Campo is a 61 year old male who was admitted on Oct 23, 2016 at 23:28 for Sepsis, Urinary Tract Infection Hospital Course [id number] Discharge Discharge Disposition Patient was discharged to SNF Discharge Diagnoses: Genie Ron NP Oct 30, 2016 14:42
--- NOTE | 2016-10-31 02:38 | Discharge Summary 2 SIG ---
DATE OF ADMISSION: 10/23/2016 DATE OF DISCHARGE: 10/29/2016 CONSULTANTS: 1. Lebrno Kendall M.D. 2. Ernesto Telles M.D. BRIEF HOSPITAL COURSE: The patient is a 61-year-old male who presented to ED with shortness of breath. He has a chronic respiratory failure, on vent, and is vent dependent, status post tracheostomy. He is a resident of [facility]. According to senior care records, the patient began to experience nausea and vomiting on 10/23/2016 and then began to experience shortness of breath. EMS was called and the patient was transported to [facility]. On evaluation, lactic acid was high. Urinalysis showed 3+ protein, 4+ occult blood, 3+ leukocyte esterase, and WBC and RBC too numerous to count. He was admitted for sepsis, leukocytosis, urinary tract infection, respiratory failure, hypertension, chronic obstructive pulmonary disease, and diabetes. He was admitted to [facility]. Dr. Telles was consulted. Urine culture showed growth of ESBL Proteus mirabilis and gram-negative rods. Sputum culture grew Pseudomonas. He was given initially Zosyn and was switched to Merrem. He also came in with sacrococcygeal stage III pressure ulcer. Wound culture showed polymicrobial growth. He was provided daily wound care. He was also followed by Dr. Kendall from pulmonary service. The patient was given pulmonary treatment. Swallow evaluation done and showed risk for chronic trace aspiration, particularly due to reduced swallow strength and sensation for residue. He was recommended to downgrade to pureed like nectar-thick soup consistency and nectar-thick liquids using teaspoon only, no straws or cup, with use of speaking valve during meals, strict aspiration precautions, and one-to-one feed and assist with meals. Antihypertensives were continued. Blood sugar was monitored covered with metformin, Levemir, and NovoLog sliding scale. The patient was eventually discharged back to [facility]. FINAL DIAGNOSES: 1. Sepsis secondary to urinary tract infection. 2. Acute on chronic respiratory failure. 3. Diabetes mellitus, out of control. 4. Cerebrovascular accident with dysphagia, on G-tube. 5. Hypercholesterolemia. 6. Chronic obstructive pulmonary disease. 7. Hypertension. 8. 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 9. Sacrococcygeal stage III pressure ulcer, present on admission. Alex Dunbar M.D. I have been assigned to dictate discharge summary on this account and I was not involved in the patient's management. Genie Ron N.P. DR: RISSA JOB#: [id number] CC: RASHID
== END 2016-10-29 16:10 | DRG 871 ==
LOC: EDBD 21:05 → EMR 21:44 → 2W 23:28 → EDBEDREQ 10-24 00:05 → 2W 10-26 19:03
DX: A41.9 Sepsis, unspecified organism (principal); J96.20 Acute and chronic respiratory failure, unspecified whether with hypoxia or hypercapnia; L89.153 Pressure ulcer of sacral region, stage 3; R53.2 Functional quadriplegia; Z43.0 Encounter for attention to tracheostomy; K76.0 Fatty (change of) liver, not elsewhere classified; N39.0 Urinary tract infection, site not specified; I69.354 Hemiplegia and hemiparesis following cerebral infarction affecting left non-dominant side; Z43.1 Encounter for attention to gastrostomy; I10 Essential (primary) hypertension; J44.9 Chronic obstructive pulmonary disease, unspecified; Z79.4 Long term (current) use of insulin; E78.00 Pure hypercholesterolemia, unspecified; B96.4 Proteus (mirabilis) (morganii) as the cause of diseases classified elsewhere; Z16.12 Extended spectrum beta lactamase (ESBL) resistance; E11.65 Type 2 diabetes mellitus with hyperglycemia
CPT/HCPCS: 36415; 36600; 71010; 74230; 76700; 80048; 80053; 81003; 82550; 82553; 82803; 82962; 83036; 83605; 83735; 83880; 84100; 84443; 84484; 85007; 85025; 85610; 85730; 86705; 86709; 86803; 87040; 87070; 87081; 87086; 87181; 87205; 87340; 93005; 93970; 94640; 94760; J1815; J7620; S5561